=== PATIENT | female | born 1935 | race Caucasian/White ===

== ENCOUNTER 2018-03-12 10:34 | Observation (INO) | payer MEDICARE, OTHER ==
[2018-03-12] MEDS ORDERED: ISOVUE-370 76%-LOCM 1 ML ONE (10:42)
[2018-03-12 11:41] LABS: #Basophils 0.1 thou/uL (0.0-0.2); #Eosinphils 0.1 thou/uL (0.0-0.7); #Lymphocytes 0.9 thou/uL (1.20-3.40); #Monocytes 0.9 thou/uL (0.11-0.59); #Neutrophils 4.7 thou/uL (1.40-6.50); %Eosinophils 1.5 % (0.0-10.0); %Lymphocytes 13.5 % (21.0-51.0); %Monocytes 12.8 % (0.0-10.0); %Neutrophils 71.2 % (42.0-75.0); Hemoglobin 12.6 g/dL (12.0-16.0); Mean Corpuscular HGB CONC 32.4 g/dL (32.0-36.0); Mean Corpuscular Hemoglobin 31.8 pg (27.0-31.0); Mean Corpuscular Volume 98.2 fL (78.0-98.0); Mean Platelet Volume 7.1 fL (7.4-10.4); Platelet Count 280 thou/uL (130-400); RBC Distribution Width 12.3 % (11.5-14.5); Red Blood Cell (RBC) Count 3.95 mill/uL (4.20-5.40); White Blood Cell (WBC) Count 6.6 thou/uL (4.8-10.8)
[2018-03-12] MEDS ORDERED: Diazepam 5 MG TAB ONE (11:45)
[2018-03-12 11:57] LABS: ALT (SGPT) 13 U/L (8-55); AST (SGOT) 17 U/L (5-34); Albumin 3.9 g/dL (3.4-4.8); Alkaline Phosphatase 84 U/L (40-150); Anion Gap 16 mmol/L (10-20); BUN (Urea Nitrogen) 18 mg/dL (9.8-20.1); Bilirubin, Total 0.7 mg/dL (0.2-1.2); CK (CPK) 52 U/L (29-168); Calc. Creatinine Clearance 0 mL/min (70-130); Calcium 9.2 mg/dL (7.8-10.44); Carbon Dioxide 22 mmol/L (23-31); Chloride 103 mmol/L (98-107); Estimated GFR-MDRD 78; Globulin 2.9 g/dL (2.4-3.5); Glucose 98 mg/dL (83-110); Potassium 4.5 mmol/L (3.5-5.1); Protein, Total 6.8 g/dL (6.0-8.3); Sodium 136 mmol/L (136-145)
--- NOTE | 2018-03-12 11:57 | RAD ---
SINGLE VIEW CHEST: Date: 03/12/18 COMPARISON: 01/24/15. HISTORY: Altered mental status. FINDINGS: Single view of the chest shows normal sized cardiomediastinal silhouette with atherosclerotic calcifi cations in the aorta. There is no evidence of consolidation, mass, or pleural effusion. IMPRESSION: No evidence of acute cardiopulmonary disease. POS: [facility]
[2018-03-12 12:01] LABS: CKMB 1.3 ng/mL (0-6.6); Troponin I Less than 0.010 ng/mL (< 0.028)
--- NOTE | 2018-03-12 13:44 | CT ---
NONCONTRAST CT HEAD: Date: 03/12/18 HISTORY: Dizziness, shortness of breath, Nausea. Syncopal episodes. COMPARISON: 02/08/15. FINDINGS: Again noted are postsurgical changes related to left frontotemporal craniotomy defect. There is evide nce of aneurysm clipping in the expected location of the anterior communicating artery. Vascular sten t is again seen within the cavernous internal carotid artery with embolization coil seen in a supracl inoid location likely related to prior coil embolization of aneurysm. There is stable encephalomalaci a seen within the left frontal and temporal lobes likely related to remote areas of infarction and/or insult. This includes low density areas within the left basal ganglia, which may be related to remot e areas of lacunar infarction. Low density areas are also seen in the right basal ganglia, stable fro m prior study, probably related to remote lacunar infarctions. There are mild chronic small vessel ischemic changes and cerebral volume loss which has not progresse d from the prior exam. There is no evidence of an acute cortical infarction, hemorrhage, mass effect, or midline shift. Remote infarction in the right cerebellar hemisphere is again seen. No other inter debra change. IMPRESSION: 1. No acute intracranial abnormality is demonstrated. 2. Postsurgical changes as described above with stable areas of encephalomalacia in the left frontot emporal lobes. 3. 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 POS: [facility]
[2018-03-12] MEDS ORDERED: Senokot S 8.6-50 MG TAB PO PRN ×2 (15:58)
[2018-03-12] MEDS ORDERED: Ondansetron PF 4 MG/2 ML Vial IVP PRN (15:58)
[2018-03-12] MEDS ORDERED: Nitroglycerin 0.4 MG TAB (25 Tab Bottle) SL PRN (15:58)
[2018-03-12] MEDS ORDERED: cloNIDine 0.1 MG TAB PO PRN (15:58)
[2018-03-12] MEDS ORDERED: Diabetic Tussin 200 MG/10 ML UDCUP PO PRN (15:58)
[2018-03-12] MEDS ORDERED: Benzonatate 100 MG CAP PO PRN (15:58)
[2018-03-12] MEDS ORDERED: Bisacodyl 5 MG TAB PO PRN ×2 (15:58)
[2018-03-12] MEDS ORDERED: Acetaminophen 500 MG TAB PO PRN (15:58)
[2018-03-12] MEDS ORDERED: hydrALAZINE 20 MG/ML VIAL SLOW IVP PRN (15:58)
[2018-03-12 16:01] LABS: Bilirubin Negative (Negative); Blood, Urine Negative (Negative); Clarity CLEAR (Clear); Glucose, Urine (Dipstick) Negative (Negative); Leukocyte Moderate (Negative); Nitrite Negative (Negative); Protein, Urine (Dipstick) Negative (Neg-Trace); Specific Gravity, Urine 1.019 (1.002-1.036); Urobilinogen 0.2 mg/dL (0.2-1.0)
[2018-03-12 16:03] LABS: Bacteria/HPF None Seen HPF (None Seen); Hyaline Casts/LPF 0-3 HYALINE CAST LPF (0-3 Hyaline); Pathc Cast-AUWi Flag 0.29 (0-2.49); RBC/HPF 0-3 HPF (0-3); Squamous Epithelial 0-3 HPF (0-3)
[2018-03-12] MEDS ORDERED: Amlodipine 5 MG TAB PO SCH (17:15)
[2018-03-12 17:59] VITALS: BMI 23.1
[2018-03-12] MEDS: Acetaminophen 325 MG TAB PO PRN (18:54)
[2018-03-12] MEDS: Sodium Chloride 0.9% 1,000 ML IV SCH (18:55)
[2018-03-12] MEDS: cefTRIAXone\\ROCEPHIN 1 GM in Sodium Chloride 0.9% 100 ML IVPB SCH (19:39)
--- NOTE | 2018-03-12 20:22 | CT ---
CT BRAIN WITHOUT CONTRAST CT ANGIOGRAM HEAD WITH CONTRAST CT ANGIOGRAM NECK WITH CONTRAST 03/12/18 COMPARISON: CT brain same day. TECHNIQUE: CT of the brain was performed without contrast. CT angiogram of the head was performed after the intr avenous administration of contrast. FINDINGS: Left craniectomy changes. Encephalomalacia in the left frontal lobe. No acute hemorrhage. No midline shift or mass effect. Old left basal ganglia and thalamic infarct. IMPRESSION: Unchanged exam. CT ANGIOGRAM OF THE HEAD AND NECK CT angiogram of the head and neck performed after the intravenous administration of contrast. 3D rend ering provided. FINDINGS: The lung apices are clear. Small left thyroid hypodensities. Vertebral arteries are codominant. There is ectasia of the vertebral arteries indicating chronic hype rtension. The left vertebral artery ends in the PICA, a normal variant. Using NASCET criteria, there is no hemodynamically significant stenosis of the internal carotid arteries. Approximately 50% stenos is of left internal carotid artery and 20% stenosis right proximal internal carotid artery. Vascular graft right MCA. Prior right MCA aneurysm clipping. Appears to be a small anterior communica ting artery aneurysm only seen on the axial images due to the spray artifact on the reformatted image s. This measures approximately 2 x 2 mm. 2 mm aneurysm right M1 segment near the trifurcation. aerodynamics teacher are patent. IMPRESSION: 1. 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 2. 2 mm aneurysm right M1 segment near the trifurcation. Code T POS: [facility]
--- NOTE | 2018-03-12 20:48 | HP ---
DATE OF ADMISSION: 03/12/2018 PRIMARY CARE PHYSICIAN: Bhavin Camarena M.D. CHIEF COMPLAINT: Dizziness. HISTORY OF PRESENT ILLNESS: Ms. Black is a pleasant 82-year-old female with past medical history of multiple cerebral aneurysms status post coiling with stenting 2 or 3 decades ago as well as histor y of hypertension and osteoarthritis who presented with above-mentioned complaint. History is mainly obtained by the patient herself and electronic medical records have been reviewed. Ms. Black reports that she has been having on and off dizziness for the last 6 weeks. She eats po adis and lives in an assisted living facility. She was told that she is dehydrated, so she has incre ased her fluid intake, but she continues to feel dizzy and it is getting worse for the last 2 days. Her dizziness is mainly positional. She is very dizzy when she sits up from a lying position or marixa ds up from a sitting position. She has to wait until the dizziness pauses before moving; otherwise, she feels that she will fall. She has not actually fallen. She denies any recent illnesses. She de nies any headache or vision changes. She denies any speech slurring or any vision changes. She marychuy es any numbness or tingling in her arms or muscle weakness, though she has neuropathy with some chron ic paresthesias. She denies any chest pain, but feels that sometimes she has feeling of heart racing . She denies any shortness of breath with these episodes. There is no prodrome associated. No head ache, no fever. She has not been having any nausea, vomiting, diarrhea or abdominal pain. She denie s any dysuria, frequency, urgency. No recent travel. Upon presentation to the ER, she was hypertensive with a blood pressure of 208/81, otherwise unremark able. Chest x-ray and CT scan of the brain were unremarkable. No acute infarction. She has remote infarction of the right cerebellar hemisphere with remote lacunar infarction in each basal ganglia. Some encephalomalacia was also noticed. She was given Valium without benefit and is now being admitt ed for further workup of unrelenting dizziness. PAST MEDICAL HISTORY: 1. Hypertension. 2. History of multiple cerebral aneurysms. 3. Dementia. 4. Diaphragmatic hernia. 5. Gastroesophageal reflux disease. 6. Osteoarthritis. PAST SURGICAL HISTORY: 1. Craniotomy for aneurysm repair. 2. Stent placement multiple years ago for treatment of cerebral aneurysm. 3. Cataract surgery. 4. Oral surgery. 5. 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 CURRENT MEDICATIONS: Unknown. Further need to be clarified, but the patient reports that she takes Plavix since 1982. Other medications listed in the ER as follows, Aciphex 20 mg daily, Bisacodyl p.r .n., Lutein 40 mg daily, vitamin D daily, Norvasc 5 mg daily, potassium gluconate 595 mg daily, Mucin ex daily p.r.n., magnesium daily p.r.n., melatonin 5 mg once a daily. ALLERGIES: ADHESIVE TAPE and some unknown blood pressure medication. SOCIAL HISTORY: She has quit smoking in 1982, multiple years of smoking, prior to that one pack a da y since 1954. No history of alcohol or drug abuse. Currently living in an assisted living facility. FAMILY HISTORY: Significant for coronary artery disease in multiple family members on both mother an d father's side. Diabetes mellitus in her mother. CODE STATUS: DO NOT RESUSCITATE or INTUBATE. Discussed with the patient in detail. She verbalizes what it entails. REVIEW OF SYSTEMS: A 12-point review of systems is done. It is negative except for those mentioned in the history and physical. LABORATORY DATA: CBC is unremarkable. Serum chemistries unremarkable. Cardiac enzymes within perico l range. TSH normal. Liver enzymes normal. Blood sugar 98. Urinalysis shows some ketones, leukocy te esterase and wbc's with a specific gravity of 1.019. Chest x-ray by my review has no evidence to suggest any pleural effusion, edema or infiltrate. CT scan of the brain per my review has no active hemorrhage. A 12-lead EKG by my review shows normal sinus rhythm with some premature atrial complexe s. Normal ST segment and normal T waves. Q-waves in lead V1 and V2. PHYSICAL EXAMINATION: VITAL SIGNS: Upon presentation, blood pressure 208/81, pulse of 70, respirations 16, saturating 98% on room air, temperature 98.2. GENERAL: No acute distress, awake, alert, oriented x3. HEENT: Mucous membranes are slightly dry. No oropharyngeal exudate or erythema. Head is normocepha lic, atraumatic. Pupils are equal, reactive to light and accommodation. Extraocular movements intac t. NECK: Supple without any lymphadenopathy, JVD or bruit. CHEST: Clear to auscultation without any wheezing, rales or rhonchi. CARDIOVASCULAR: Rate and rhythm is regular without any murmur, rubs or gallops. ABDOMEN: Soft, nontender, nondistended. She has one spot of tenderness little right to the epigastr ic region. No rebound, guarding or rigidity. EXTREMITIES: Free of any cyanosis, clubbing, or edema. NEUROLOGIC: Nonfocal. No nystagmus noticed. SKIN: Shows diffuse bruising, mainly in the upper extremities which the patient attributes to her "b lood thinner" Plavix. PSYCHIATRIC: Normal affect. IMPRESSION AND PLAN: 1. Dizziness. The patient has multiple risk factors for posterior basilar stroke. We will admit he r to the hospital to stroke floor with frequent neuro checks and TIA/CVA workup. I will start her on low dose enteric-coated aspirin and get an MRI of the brain, carotid Doppler ultrasound, and transth oracic echocardiogram. We will also start her on gentle IV fluid hydration and obtain orthostatics a s the patient's symptoms are rather positional. At this time, the other possibilities include benign positional vertigo, orthostatic hypotension or vestibular neuronitis. She will be on telemetry to r ule out any arrhythmias, though it is less likely. 2. Hypertensive urgency. The patient only takes Norvasc at home. We will restart it and start her on p.r.n. antihypertensives with not too tight of blood pressure control in case we are facing cerebr ovascular accident. 3. Early urinary tract infection. The patient most likely also has developed a urinary tract infect ion. We will send the urine for culture and start her on empiric Rocephin for now. 4. History of cerebral aneurysms. I am not sure why the patient is on Plavix as the brain hemorrhag e would be a relative contraindication. She reports that she is on it since 1982, which does not romero nd right. I have encouraged her to discuss it further with her primary care physician, Dr. Camarena at er next outpatient visit. 5. Diaphragmatic hernia. Restart proton pump inhibitor. 6. History of osteoarthritis. 7. CODE STATUS: DO NOT RESUSCITATE or INTUBATE discussed with the patient. 8. Deep venous thrombosis and gastrointestinal prophylaxis and continue supportive care. DISPOSITION: Ms. Black is currently being admitted to the hospital for intractable vertigo and di zziness to rule out posterior cerebral circulation stroke. Estimated length of stay is less than 2 m idnights. Further management will depend upon her clinical course.
[2018-03-12] MEDS: Heparin 5,000 UNITS/ML VIAL SC SCH (22:22)
[2018-03-12] MEDS: Famotidine 20 MG TAB PO SCH (22:23)
[2018-03-13 04:51] LABS: #Basophils 0.1 thou/uL (0.0-0.2); #Eosinphils 0.3 thou/uL (0.0-0.7); #Lymphocytes 1.2 thou/uL (1.20-3.40); #Monocytes 0.7 thou/uL (0.11-0.59); #Neutrophils 3.4 thou/uL (1.40-6.50); %Basophils 1.1 % (0.0-1.0); %Eosinophils 4.5 % (0.0-10.0); %Lymphocytes 20.9 % (21.0-51.0); %Monocytes 12.6 % (0.0-10.0); %Neutrophils 60.9 % (42.0-75.0); Hemoglobin 11.8 g/dL (12.0-16.0); Mean Corpuscular HGB CONC 32.1 g/dL (32.0-36.0); Mean Corpuscular Hemoglobin 31.4 pg (27.0-31.0); Mean Corpuscular Volume 97.7 fL (78.0-98.0); Mean Platelet Volume 7.4 fL (7.4-10.4); Platelet Count 279 thou/uL (130-400); RBC Distribution Width 12.5 % (11.5-14.5); Red Blood Cell (RBC) Count 3.76 mill/uL (4.20-5.40); White Blood Cell (WBC) Count 5.6 thou/uL (4.8-10.8)
[2018-03-13 05:13] LABS: Anion Gap 15 mmol/L (10-20); BUN (Urea Nitrogen) 13 mg/dL (9.8-20.1); Calc. Creatinine Clearance 61 mL/min (70-130); Calcium 8.8 mg/dL (7.8-10.44); Carbon Dioxide 20 mmol/L (23-31); Chloride 106 mmol/L (98-107); Estimated GFR-MDRD 85; Glucose 82 mg/dL (83-110); Potassium 3.8 mmol/L (3.5-5.1); Sodium 137 mmol/L (136-145)
[2018-03-13 05:16] LABS: Cardiac Risk 1.9 (Less than 4.5)
[2018-03-13] MEDS: Sodium Chloride 0.9% 1,000 ML IV SCH ×2 (06:26→11:33)
[2018-03-13] MEDS ORDERED: Prevnar 13-Val Conj/PF 0.5 ML SYRINGE IM ONE (09:00)
[2018-03-13] MEDS ORDERED: Amlodipine 5 MG TAB PO SCH (09:00)
[2018-03-13] MEDS: Famotidine 20 MG TAB PO SCH ×2 (09:53→20:48)
[2018-03-13] MEDS: Aspirin 81 mg Enteric Coated Tablet PO SCH (09:53)
[2018-03-13] MEDS: Heparin 5,000 UNITS/ML VIAL SC SCH ×2 (09:53→20:48)
--- NOTE | 2018-03-13 12:48 | PDOC.PN ---
- Subjective Encounter Start Date: 03/13/18 Encounter Start Time: 12:46 Subjective: no more dizziness. No N/V -: feels a little better but says her head feels funny -: feels that she needs plavix for her head as she is on it since 1982 - Objective Resuscitation Status: Resuscitation Status DNR:Do Not Resuscitate MAR Reviewed: Yes Vital Signs & Weight: Vital Signs (12 hours) Temp Pulse Resp BP BP Pulse Ox 03/13/18 11:01 98.5 F 76 18 136/82 93 L 03/13/18 09:53 78 146/72 H 03/13/18 07:51 98.4 F 81 18 146/72 H 97 03/13/18 03:51 98.1 F 70 16 146/68 H 94 L Weight Weight 135 lb I&O: 03/12/18 03/13/18 03/14/18 06:59 06:59 06:59 Intake Total 1225 Balance 1225 Result Diagrams: 03/13/18 03:35 03/13/18 03:35 Additional Labs: Laboratory Tests 03/12/18 03/12/18 03/13/18 11:23 11:23 03:35 CK-MB (CK-2) 1.3 Troponin I Less than 0.010 Triglycerides 63 Cholesterol 175 LDL Cholesterol, Calc 72 HDL Cholesterol 90 TSH 3rd Generation [id number] Radiology Reviewed by me: Yes (CTA-small cerebral aneurysms) Phys Exam - Physical Examination Constitutional: NAD HEENT: PERRLA, moist MMs, sclera anicteric, oral pharynx no lesions Neck: no nodes, no JVD, supple, full ROM Respiratory: no wheezing, no rales, no rhonchi, clear to auscultation bilateral Cardiovascular: RRR, no significant murmur, no rub Gastrointestinal: soft, non-tender, no distention, positive bowel sounds Musculoskeletal: no edema, pulses present Neurological: non-focal, normal sensation, moves all 4 limbs Psychiatric: normal affect, A&O x 3 Deviation from normal: extensive bruising upper extrmities Dx/Plan (1) Dizziness and giddiness Code(s): R42 - DIZZINESS AND GIDDINESS Status: Acute (2) UTI (urinary tract infection) Status: Acute (3) Cerebral aneurysm without rupture Code(s): I67.1 - CEREBRAL ANEURYSM, NONRUPTURED Status: Chronic (4) Dementia Code(s): F03.90 - UNSPECIFIED DEMENTIA WITHOUT BEHAVIORAL DISTURBANCE Status: Chronic (5) GERD (gastroesophageal reflux disease) Code(s): K21.9 - GASTRO-ESOPHAGEAL REFLUX DISEASE WITHOUT ESOPHAGITIS Status: Chronic (6) Hypertension Code(s): I10 - ESSENTIAL (PRIMARY) HYPERTENSION Status: Chronic - Plan PT/OT, out of bed/ambulate, DVT proph w/SCDs Bp better controlled. cont Amlodipine,prn anti hypertensives -: Hold plavix given cerebral aneurysms.Will consult NS as not sure if symptom -: are due to aneurysms -: Pt adamant that she needs to take plavix despite telling the risk og Bleed -: Cont rocephin,follow urine cx * .cont NS for now * orthostatics negative * ? Vertigo. * HD stable Review of Systems - Review of Systems Constitutional: weakness. negative: fever, chills, sweats, malaise, other ENT: negative: Ear Pain, Ear Discharge, Nose Pain, Nose Discharge, Nose Congestion, Mouth Pain, Mouth Swelling, Throat Pain, Throat Swelling, Other Respiratory: negative: Cough, Dry, Shortness of Breath, Hemoptysis, SOB with Excertion, Pleuritic Pain, Sputum, Wheezing Cardiovascular: light headedness. negative: chest pain, palpitations, orthopnea , paroxysmal nocturnal dyspnea, edema, other Gastrointestinal: negative: Nausea, Vomiting, Abdominal Pain, Diarrhea, Constipation, Melena, Hematochezia, Other Musculoskeletal: negative: Neck Pain, Shoulder Pain, Arm Pain, Back Pain, Hand Pain, Leg Pain, Foot Pain, Other Skin: negative: Rash, Lesions, Ari, Bruising, Other Neurological: negative: Weakness, Numbness, Incoordination, Change in Speech, Confusion, Seizures, Other - Medications/Allergies Allergies/Adverse Reactions: Allergies Allergy/AdvReac Type Severity Reaction Status Date / Time adhesive tape [tape] Allergy Rash Verified 03/13/18 09:37 Medications: Current Medications Acetaminophen (Tylenol) 650 mg PO Q4H PRN PRN Reason: Headache/Fever/Mild Pain (1-3) Last Admin: 03/12/18 18:54 Dose: 650 mg Acetaminophen (Tylenol) 1,000 mg PO Q6H PRN PRN Reason: Mild Pain (1-3) Amlodipine Besylate (Norvasc) 5 mg PO DAILY [facility] Last Admin: 03/13/18 09:53 Dose: 5 mg Aspirin (Ecotrin) 81 mg PO DAILY [facility] Last Admin: 03/13/18 09:53 Dose: 81 mg Benzonatate (Tessalon) 100 mg PO Q6H PRN PRN Reason: Cough Bisacodyl (Dulcolax) 10 mg PO DAILYPRN PRN PRN Reason: Constipation Clonidine (Catapres) 0.1 mg PO Q4H PRN PRN Reason: SBP > 170____ Famotidine (Pepcid) 20 mg PO BID [facility] Last Admin: 03/13/18 09:53 Dose: 20 mg Guaifenesin (Robitussin Sf) 200 mg PO Q4H PRN PRN Reason: Cough Heparin Sodium (Porcine) (Heparin) 5,000 units SC Q12HR [facility] Last Admin: 03/13/18 09:53 Dose: 5,000 units Hydralazine HCl (Apresoline) 10 mg SLOW IVP Q4H PRN PRN Reason: SBP > 180 and HR < 70 Sodium Chloride (Normal Saline 0.9%) 1,000 mls @ 75 mls/hr IV .[id number] [facility] Last Admin: 03/13/18 11:33 Dose: 1,000 mls Ceftriaxone Sodium 1 gm/ (Sodium Chloride) 100 mls @ 200 mls/hr IVPB Q24HR [facility] Last Admin: 03/12/18 19:39 Dose: 100 mls Nitroglycerin (Nitrostat) 0.4 mg SL Q5MIN PRN PRN Reason: Chest Pain Ondansetron HCl (Zofran) 4 mg IVP Q6H PRN PRN Reason: Nausea/Vomiting Pantoprazole Sodium (Protonix) 40 mg PO DAILY [facility] Last Admin: 03/13/18 09:53 Dose: 40 mg Senna/Docusate Sodium (Senokot S) 2 tab PO BID PRN PRN Reason: Constipation Sodium Chloride (Flush - Normal Saline) 10 ml IVF PRN PRN PRN Reason: Saline Flush
[2018-03-13] MEDS ORDERED: Bisacodyl 5 MG TAB PO PRN (12:49)
[2018-03-13] MEDS ORDERED: Acetaminophen 500 MG TAB PO PRN (12:49)
[2018-03-13] MEDS: Acetaminophen 325 MG TAB PO PRN (16:39)
[2018-03-13] MEDS: cefTRIAXone\\ROCEPHIN 1 GM in Sodium Chloride 0.9% 100 ML IVPB SCH (18:37)
[2018-03-13] MEDS ORDERED: Melatonin 3 MG TAB PO SCH (21:00)
[2018-03-14 08:05] VITALS: BP 160/66; TEMP 98.3
[2018-03-14] MEDS: Aspirin 81 mg Enteric Coated Tablet PO SCH (08:07)
[2018-03-14] MEDS: Famotidine 20 MG TAB PO SCH (08:07)
[2018-03-14] MEDS: Heparin 5,000 UNITS/ML VIAL SC SCH (08:08)
[2018-03-14] MEDS ORDERED: Polyethylene Glycol 3350 17 GM Packet PO SCH (09:00)
[2018-03-14] MEDS ORDERED: Amlodipine 5 MG TAB PO SCH (09:00)
--- NOTE | 2018-03-14 15:59 | DIS ---
DATE OF ADMISSION: 03/12/2018 DATE OF DISCHARGE: 03/14/2018 CONDITION AT THE TIME OF DISCHARGE: Stable and improved. PRIMARY CARE PHYSICIAN: Dr. Bhavin Camarena. PRIMARY CONSULTING DATABASE ADMINISTRATOR: Dr. Coker. DISCHARGE DIAGNOSES: 1. Vertigo. 2. Urinary tract infection. 3. Cerebral aneurysm with history of coiling. 4. Hypertension. 5. Dementia. 6. Diaphragmatic hernia. 7. Gastroesophageal reflux disease. 8. Osteoarthritis. DISCHARGE MEDICATIONS: Resume home medications as per the history and physical. The patient is inst ructed to hold the Plavix for now, but the patient and her family are very reluctant and somewhat arg umentative about continuing that. New medication, levofloxacin 500 mg p.o. daily for 5 more days. PROCEDURES DONE IN THE HOSPITAL: 1. CT angio of the brain, which shows 2 small aneurysms. The first one is a 2 x 3 mm aneurysm of th e anterior communicating artery and another one is a 2 mm aneurysm of the right M1 segment of the tri furcation. 2. Transthoracic echocardiogram which shows EF of 55%-60% and diastolic dysfunction with left atrial enlargement, otherwise unremarkable. 3. CT scan of the brain upon presentation, which is negative for acute intracranial abnormality. Re mote infarction of the right cerebellar hemisphere with remote lacunar infarction in each basal gangl ia are seen. INHOUSE CONSULTATION: Neurosurgery who will follow the patient as an outpatient, Dr. Trejo. HISTORY OF PRESENT ILLNESS: Ms. Black is a pleasant 82-year-old female with past medical history of multiple cerebral aneurysm requiring clipping as well as hypertension, who presented to the emerge ncy room with complaints of intractable dizziness. She had no improvement in her symptoms in the nitesh rgency room and was admitted for intractable vertigo workup. She was hemodynamically stable upon pre sentation. Please see admission history and physical for further detail. HOSPITAL COURSE: She was admitted to stroke floor to rule out transient ischemic attack/cerebrovascu lar accident. She could not undergo MRI of the brain, because of the cerebral coils. She had a CT a ngio done, which showed 2 small aneurysms as above. Echocardiogram was rather unimpressive. The pat ient's Plavix was held while she was here, but she insisted on keeping it on since she is taking it s pastor "1982". She reports that she was given it for the cerebral aneurysm, but I tried to tell her th at her risk of bleeding from Plavix is significantly high given the aneurysms. Her orthostatics were negative. Her symptoms resolved gradually spontaneously. She was found to hav e a mild UTI, which was treated with Rocephin in the emergency room and culture was sent, which is pe nding at this time. Echo was done with the above-mentioned results. As of this morning, she is back to her baseline and is symptom free. PHYSICAL EXAMINATION: VITAL SIGNS: This morning on my examination, temperature 98.3, pulse of 79, respirations 16, saturat ing 95% on room air, blood pressure 160/66. GENERAL: No acute distress, walking around the room. Family is at bedside. CHEST: Clear to auscultation bilaterally. HEART: Rate and rhythm is regular. LABORATORY EXAMINATION: Lipid panel normal. TSH 1.90. Cardiac enzymes normal. Serum chemistries a nd CBC normal. Urine culture pending at this time. They are encouraged to follow up with Dr. Camarena and discuss the Plavix with him as well. I have discussed her case with Mr. Ayan Heath PA-C who is working with Dr. Trejo and they have reviewed the images. They will follow the patient in the outpatient setting. The patient also repor ts that she has an upcoming appointment with Cardiology, Dr. Coker in 2-3 days. She was unable to t ell me why she sees the ticket scheduler. Once again, she is encouraged to discuss Plavix with Cardiolog y as well. As at this time, I cannot find a clear indication of lifelong Plavix for this patient. S he was found to have extensive bruising in her upper extremities and is a very high risk of cerebral bleed if she continues to take Plavix without a clear indication.
[2018-03-14] MEDS ORDERED: cefTRIAXone\\ROCEPHIN 1 GM in Sodium Chloride 0.9% 100 ML IVPB SCH (18:00)
== END 2018-03-14 09:12 | disposition home or self-care (01) ==
LOC: ERS 10:34 → 2SE 15:14
PROVIDERS: ADMIT Internal Medicine; ATTEND Internal Medicine
DX: R42 Dizziness and giddiness (principal); N39.0 Urinary tract infection, site not specified; I10 Essential (primary) hypertension; K21.9 Gastro-esophageal reflux disease without esophagitis; M19.90 Unspecified osteoarthritis, unspecified site; F03.90 Unspecified dementia, unspecified severity, without behavioral disturbance, psychotic disturbance, mood disturbance, and anxiety; K44.9 Diaphragmatic hernia without obstruction or gangrene; Z79.52 Long term (current) use of systemic steroids; Z79.899 Other long term (current) drug therapy; Z87.891 Personal history of nicotine dependence
CPT/HCPCS: 70450; 70496; 70498; 71045; 80048; 80061; 82550; 82553; 84484; 85025; 87086; 93005; 93306; 96365; 96376; 97139; 99285; G0378 ×2; G8978; G8979; G8980; 36415; 80053; 81003; 81015; 84443; J0696; J1644; J7050

== ENCOUNTER 2019-01-17 03:29 | Emergency (ER) | payer MEDICARE, OTHER ==
[2019-01-17] MEDS ORDERED: Adacel (T-DAP) 0.5 ML SYRINGE ONE (04:14)
== END 2019-01-17 05:01 | disposition home or self-care (01) ==
LOC: ERS 03:29
DX: S81.812A Laceration without foreign body, left lower leg, initial encounter (principal); I10 Essential (primary) hypertension; E78.00 Pure hypercholesterolemia, unspecified; Z87.891 Personal history of nicotine dependence; Z79.899 Other long term (current) drug therapy; W06.XXXA Fall from bed, initial encounter
CPT/HCPCS: 90471; 90715

== ENCOUNTER 2019-01-23 20:05 | Inpatient (IN) | payer MEDICARE ==
--- NOTE | 2019-01-23 20:41 | RAD ---
EXAM: Single view of the chest HISTORY: Shortness of breath COMPARISON: 03/12/2018 FINDINGS: Single view of the chest shows a normal sized cardiomediastinal silhouette. Atheroscleroti c calcifications are seen in the aorta. There is no evidence of consolidation, mass, or pleural effusion. Degenerative changes are seen in the spine and left shoulder. IMPRESSION: No evidence of acute cardiopulmonary disease
[2019-01-23] MEDS ORDERED: cefTRIAXone\\ROCEPHIN 2 GM VIAL ONE (21:04)
[2019-01-23 21:10] LABS: #Eosinphils 0.2 thou/uL (0.0-0.7); #Lymphocytes 1.3 thou/uL (1.20-3.40); #Monocytes 1.2 thou/uL (0.11-0.59); #Neutrophils 8.2 thou/uL (1.40-6.50); %Basophils 0.2 % (0.0-1.0); %Eosinophils 2.1 % (0.0-10.0); %Lymphocytes 12.3 % (21.0-51.0); %Monocytes 10.6 % (0.0-10.0); %Neutrophils 74.8 % (42.0-75.0); Hemoglobin 11.9 g/dL (12.0-16.0); Mean Corpuscular HGB CONC 34.5 g/dL (32.0-36.0); Mean Corpuscular Hemoglobin 34.2 pg (27.0-31.0); Platelet Count 330 thou/uL (130-400); RBC Distribution Width 12.3 % (11.5-14.5); Red Blood Cell (RBC) Count 3.49 mill/uL (4.20-5.40); White Blood Cell (WBC) Count 10.9 thou/uL (4.8-10.8)
[2019-01-23 21:31] LABS: ALT (SGPT) 12 U/L (8-55); AST (SGOT) 15 U/L (5-34); Albumin 4.2 g/dL (3.4-4.8); Alkaline Phosphatase 82 U/L (40-150); Anion Gap 18 mmol/L (10-20); BUN (Urea Nitrogen) 16 mg/dL (9.8-20.1); Bilirubin, Total 0.3 mg/dL (0.2-1.2); Calc. Creatinine Clearance 0 mL/min (70-130); Calcium 9.8 mg/dL (7.8-10.44); Carbon Dioxide 20 mmol/L (23-31); Chloride 100 mmol/L (98-107); Estimated GFR-MDRD 55; Globulin 3.7 g/dL (2.4-3.5); Glucose 89 mg/dL (83-110); Potassium 3.6 mmol/L (3.5-5.1); Protein, Total 7.9 g/dL (6.0-8.3); Sodium 134 mmol/L (136-145)
[2019-01-23] MEDS ORDERED: Acetaminophen 325 MG TAB PO PRN (23:09)
[2019-01-23] MEDS ORDERED: Acetaminophen 650 MG Suppository PR PRN (23:09)
[2019-01-24 00:50] LABS: Troponin I Less than 0.010 ng/mL (< 0.028)
[2019-01-24 01:02] LABS: Lactic Acid 0.8 mmol/L (0.5-2.2)
[2019-01-24] MEDS ORDERED: PSEUDOEPHEDRNE HCL PO PRN (01:57)
[2019-01-24] MEDS ORDERED: Loperamide HCl 2 MG CAP PO PRN (01:57)
[2019-01-24] MEDS ORDERED: GUAIFENESIN PO PRN (01:57)
[2019-01-24] MEDS: traMADol HCl 50 MG TAB PO PRN ×3 (02:14→17:26)
--- NOTE | 2019-01-24 02:36 | HP ---
PRIMARY CARE DOCTOR: Bhavin Camarena MD. CODE STATUS: Full code. TIME OF EVALUATION: 11:00 p.m. CHIEF COMPLAINT: Left leg redness. HISTORY OF PRESENT ILLNESS: 83 years old female patient with past medical history of chronic constipation, cerebral aneurysm, hypertension, high cholesterol, came to the hospital after having left lower extremity leg swelling, redness, the patient has a chronic wound that is nonhealing and seems to be overtly infected, associated with shortness of breath. No significant chest pain was reported. The leg is swollen, red with significant drainage from the wound. The patient reported was having Wound Care at home, but it did not get better. The shortness of breath started around 0530 hours with no clear triggers, no exacerbating factors, was severe. REVIEW OF SYSTEMS: All other systems were reviewed and negative except for the findings mentioned above. PAST MEDICAL HISTORY: As mentioned in HPI. PAST SURGICAL HISTORY: Cerebral aneurysmal repair x2. FAMILY HISTORY: Reviewed and non contributory for current presentations PSYCHIATRIC HISTORY: No previous psych history. SOCIAL HISTORY: The patient drinks socially once a month. The patient is a former tobacco user. Smokes cigarettes. No drugs. Lives in a long-term care facility at [facility]. FAMILY HISTORY: Noncontributory to current presentation. KNOWN ALLERGIES: Adhesive tape, unknown blood pressure medications. REPORTED MEDICATIONS: Lutein, vitamin D3, Norvasc, potassium gluconate, Mucinex , melatonin, and Tylenol ES. PHYSICAL EXAMINATION: VITAL SIGNS: On presentation, blood pressure 165/77 with heart rate 92, respiratory rate was 18, temperature 97.9. GENERAL APPEARANCE: The patient is alert, oriented, no acute distress. HEENT: Eyes, normal conjunctivae. Moist oral mucosa. Anicteric. No JVD. RESPIRATORY: Bilateral air entry. No rales. No wheezes. Symmetric expansion. CARDIOVASCULAR: Normal rate. Regular rhythm. No murmurs. No gallop. No edema. ABDOMEN: Soft. Normal bowel sounds. MUSCULOSKELETAL: Baseline range of motion and strength. On the left lower extremity, there is a skin tear that is old after the patient had a fall about a week ago. It has continued to be red, swollen, tender, with significant drainage from the nonhealing wound. SKIN: Warm and intact. No pallor. No rash. No redness. The left lower extremity as described in musculoskeletal. NEURO: No evidence of any new focal weakness. Cranial nerves seems to be intact. PSYCH: The patient is in good mood. No anxiety. Optimal judgment. DIAGNOSTIC STUDIES: EKG was reviewed. The patient has normal sinus rhythm with a rate of 85 with MS 152, QRS 80, QT corrected 466. Vascular ultrasound was done. The patient has no significant DVT in the left lower extremity. Also on the area of the wound, it could not be done due to the wound. The x-ray was done, it was negative. LABORATORY DATA: Reviewed. The patient has a white count of 10.9, hemoglobin 11.9 MCV 99, platelet count 330, neutrophils 74, lymphocytes 12.3, monocytes 10.6. Coagulation, D-dimer 0.83. Chemistry; sodium 134, potassium 3.6, chloride 100, carbon dioxide 20, anion gap 18, BUN 16, creatinine 0.96 and GFR 55. Lactic acid 2.2, the second one 0.8. LFTs were negative and troponin was negative x2. ASSESSMENT AND PLAN: The patient will be placed in the hospital with following medical problems: 1. Left lower extremity cellulitis. The patient will be on broad-spectrum antibiotics. We will follow cultures. We will treat accordingly. 2. Chest pain, unclear etiology. Unlikely to be coronary artery disease. This patient has a negative troponin. No significant EKG changes. The patient has a positive D-dimer. The patient is almost nonambulatory after the fall and the wound. High risk for pulmonary embolism with positive D-dimer. We will do a CT angio, give some hydration for kidney protection to rule out pulmonary embolism. 3. Chronic macrocytic anemia. We will monitor. This is chronic, can be followed as outpatient. 4. Uncontrolled hypertension, systolic blood pressure 165. We will monitor. We will treat accordingly. Reconcile home medications. 5. Deep venous thrombosis prophylaxis. 6. Hyperlipidemia. Low-cholesterol diet is advised. Reconcile home medications. Job ID: [id number] [facility]
[2019-01-24] MEDS: Sodium Chloride 0.9% 1,000 ML IV SCH ×2 (03:24→17:28)
[2019-01-24] MEDS: Melatonin 3 MG TAB PO PRN (03:24)
[2019-01-24 03:45] LABS: #Eosinphils 0.3 thou/uL (0.0-0.7); #Lymphocytes 1.3 thou/uL (1.20-3.40); #Monocytes 1.1 thou/uL (0.11-0.59); #Neutrophils 5.7 thou/uL (1.40-6.50); %Basophils 0.2 % (0.0-1.0); %Eosinophils 3.7 % (0.0-10.0); %Lymphocytes 15.4 % (21.0-51.0); %Monocytes 12.6 % (0.0-10.0); %Neutrophils 68.1 % (42.0-75.0); Hemoglobin 11.2 g/dL (12.0-16.0); Mean Corpuscular HGB CONC 33.3 g/dL (32.0-36.0); Mean Corpuscular Volume 99.1 fL (78.0-98.0); Mean Platelet Volume 6.5 fL (7.4-10.4); Platelet Count 350 thou/uL (130-400); RBC Distribution Width 12.3 % (11.5-14.5); White Blood Cell (WBC) Count 8.4 thou/uL (4.8-10.8)
[2019-01-24 03:59] LABS: Anion Gap 17 mmol/L (10-20); BUN (Urea Nitrogen) 13 mg/dL (9.8-20.1); Calc. Creatinine Clearance 58 mL/min (70-130); Calcium 9.1 mg/dL (7.8-10.44); Carbon Dioxide 21 mmol/L (23-31); Chloride 100 mmol/L (98-107); Estimated GFR-MDRD 80; Glucose 80 mg/dL (83-110); Potassium 3.8 mmol/L (3.5-5.1); Sodium 134 mmol/L (136-145)
[2019-01-24 04:04] LABS: Troponin I Less than 0.010 ng/mL (< 0.028)
--- NOTE | 2019-01-24 07:48 | CT ---
PRELIMINARY REPORT/[facility]/EMERGENCY AFTER HOURS PROCEDURE EXAM: CT Angiography Chest With Contrast EXAM DATE/TIME: 01/24/2019 3:12 AM CLINICAL HISTORY: 83 years old, female; Patient HX: Inpt. Eval for possible pe; PT C/O chest pain, SOB, and left leg pain. Elevated d-dimer TECHNIQUE: Imaging protocol: Computed tomographic angiography of the chest with intravenous contrast. 3D rendering: MIP reconstructed images were created and reviewed. COMPARISON: No relevant prior studies available. FINDINGS: Pulmonary arteries: Prominence of the central pulmonary arteries raises the possibility of pulmonary arterial hypertension. No evidence of PE. Aorta: Atherosclerotic aorta. No aneurysm or acute aortic syndrome. Lungs: Scarring and subsegmental atelectasis in the right lung. Lungs otherwise clear. Pleural space: Unremarkable. No pneumothorax. No pleural effusion. Heart: Unremarkable. No cardiomegaly. No pericardial effusion. Mediastinum: Esophagus is unremarkable. Kidneys and ureters: Left renal cyst. Lymph nodes: Unremarkable. No enlarged lymph nodes. Bones/joints: Unremarkable. No acute fracture. Soft tissues: Moderate hernia. Other findings: Right subacromial bursitis. IMPRESSION: Prominence of the central pulmonary arteries raises the possibility of pulmonary arterial hypertensio n. No evidence of PE. Thank you for allowing us to participate in the care of your patient. Dictated and Authenticated by: Jamie Zaman MD 01/24/2019 4:00 AM Central Time ([place] & [place]) FINAL REPORT EMERGENCY AFTER HOURS CT ANGIOGRAM THORAX WITH IV CONTRAST AND 3D RECONSTRUCTIONS: HISTORY: Chest pain and shortness of breath. Left leg pain. Elevated d-dimer. COMPARISON: CT abdomen on 03/07/2015. IMPRESSION: 1. No CT evidence of a pulmonary embolus. 2. Atherosclerotic vascular calcifications involving the coronary arteries and thoracic aorta. The th oracic aorta is normal in caliber without evidence of an aortic dissection. 3. Minimal scarring versus atelectasis in the right upper lobe, right middle lobe, and right lower lo be and to a lesser extent in the left lower lobe. No discrete pulmonary nodule, mass, or pleural effusion is identified. 4. Moderate size hiatal hernia. 5. Hypodense left renal lesions in the superior pole left kidney also seen on prior CT abdomen and li montserrat related to renal cysts. 6. Catheter coiled within the central spinal canal lower thoracic spine. Degenerative changes are see n in the spine. 7. Fluid within the subacromial bursa on the right with prominent right glenohumeral osteoarthropath y. 8. Calcifications within the subacromial space on the left suggesting intra-articular loose bodies. I n addition, there is fat density in the region of the subacromial bursa on the left incompletely imaged or evaluated. This may be secondary to lipomatosis of the synovium due to the severe left shou lder osteoarthritis, but further evaluation with MRI is recommended. This finding and recommendation was discussed with Mercy, the nurse on the hospital floor in charge of the patient's c are on 01/25/2019 at 0824 hours. Findings are agreement with the primary report by [facility]. Code QA
--- NOTE | 2019-01-24 08:07 | ULT ---
ULTRASOUND LEFT LOWER EXTREMITY VENOUS DOPPLER: Date: 01/23/19 HISTORY: Pain, redness, swelling, edema. COMPARISON: None. FINDINGS: Real-time Raya scale with color Doppler and spectral analysis of the left lower extremity venous syst em was performed. The common femoral, femoral, proximal portion of greater saphenous and deep femoral veins, as well as popliteal and posterior tibial veins were interrogation. Normal flow, augmentation, and compression. IMPRESSION: No deep venous thrombosis. POS: CET
[2019-01-24] MEDS ORDERED: Prevnar 13-Val Conj/PF 0.5 ML SYRINGE IM ONE (08:15)
[2019-01-24] MEDS: Amlodipine 5 MG TAB PO SCH (08:57)
[2019-01-24] MEDS: Enoxaparin Sodium 40 MG/0.4 ML SYRINGE SC SCH (08:57)
[2019-01-24] MEDS: Polyethylene Glycol 3350 17 GM Packet PO SCH (08:58)
[2019-01-24] MEDS ORDERED: Iopamidol 370 76% 100 ML VIAL ONE (10:45)
[2019-01-24] MEDS: Acetaminophen 500 MG TAB PO PRN ×2 (12:38→20:49)
--- NOTE | 2019-01-24 14:43 | PDOC.HOSPP ---
- Subjective Encounter Date: 01/24/19 Encounter Time: 14:41 Subjective: Feeling better in general. No SOB. No palpitations. Has some pain in her legs. Right one tends to cramp and she has to stand. - Objective Vital Signs & Weight: Vital Signs (12 hours) Temp Pulse Resp BP Pulse Ox 01/24/19 12:00 97.4 F L 89 17 128/57 L 96 01/24/19 08:57 83 01/24/19 08:00 98.6 F 83 17 175/74 H 96 01/24/19 04:20 98.8 F 86 20 157/70 H 95 Weight Weight 138 lb 11.2 oz I&O: 01/23/19 01/24/19 01/25/19 06:59 06:59 06:59 Intake Total 540 Output Total 150 Balance 390 Result Diagrams: 01/24/19 03:31 01/24/19 03:31 Hospitalist ROS - Medication Medications: Active Medications Generic Name Dose Route Start Last Admin Trade Name Freq PRN Reason Stop Dose Admin Acetaminophen 500 mg 01/24/19 01:57 01/24/19 12:38 Tylenol PO 500 mg Q6H PRN Administration Mild Pain (1-3) Amlodipine Besylate 5 mg 01/24/19 09:00 01/24/19 08:57 Norvasc PO 5 mg DAILY KHADRA Administration Cholecalciferol 2,000 units 01/24/19 09:00 01/24/19 08:57 Vitamin D3 PO 2,000 units DAILY KHADRA Administration Enoxaparin Sodium 40 mg 01/24/19 09:00 01/24/19 08:57 Lovenox SC 40 mg 0900 KHADRA Administration Sodium Chloride 1,000 mls @ 75 mls/hr 01/24/19 02:00 01/24/19 03:24 Normal Saline 0.9% IV 1,000 mls .[id number] KHADRA Administration Melatonin 3 mg 01/24/19 01:55 01/24/19 03:24 Melatonin PO 3 mg HS PRN Administration Insomnia Polyethylene Glycol 17 gm 01/24/19 09:00 01/24/19 08:58 Miralax PO 17 gm DAILY KHADRA Administration Sodium Chloride 10 ml 01/24/19 09:00 01/24/19 08:59 Flush - Normal Saline IVF Not Given Q12HR KHADRA Tramadol HCl 50 mg 01/24/19 01:54 01/24/19 11:16 Ultram PO 50 mg Q4H PRN Administration Moderate Pain (4-6) Triamcinolone Acetonide 0 gm 01/24/19 09:00 01/24/19 08:58 Kenalog 0.1% Ointment TOP 1 applic BID KHADRA Administration - Exam General Appearance: NAD, awake alert Neck: supple, symmetric, no JVD, no thyromegaly, no lymphadenopathy, no carotid bruit Heart: RRR, no murmur, no gallops, no rubs, normal peripheral pulses Respiratory: CTAB, no wheezes, no rales, no ronchi, normal chest expansion, no tachypnea, normal percussion Gastrointestinal: soft, non-tender, non-distended, normal bowel sounds, no palpable masses, no hepatomegaly, no splenomegaly, no bruit Extremities: no edema (Arthropathy of the toes and feet.) Extremeties - other findings: Erythema of the LLE. Skin tear of the left upper , outer calf with dressing Neurological: CN's grossly intact, normal sensation to touch, no weakness, no focal deficits, no new deficit Musculoskeletal: normal tone Psychiatric: normal affect, normal behavior, A&O x 3 Hosp A/P (1) Cellulitis of left leg Code(s): L03.116 - CELLULITIS OF LEFT LOWER LIMB Status: Acute (2) GERD (gastroesophageal reflux disease) Code(s): K21.9 - GASTRO-ESOPHAGEAL REFLUX DISEASE WITHOUT ESOPHAGITIS Status: Chronic (3) Hypertension Code(s): I10 - ESSENTIAL (PRIMARY) HYPERTENSION Status: Chronic
[2019-01-24] MEDS: cefTRIAXone\\ROCEPHIN 1 GM in Sodium Chloride 0.9% 100 ML IVPB SCH (17:26)
[2019-01-24] MEDS: Melatonin 3 MG TAB PO SCH (20:47)
[2019-01-24] MEDS: Potassium Chloride 8 MEQ TAB PO SCH (20:47)
[2019-01-24] MEDS ORDERED: Vancomycin HCl 1 GM in Premix Bag 1 BAG IVPB SCH (21:00)
[2019-01-24] MEDS ORDERED: POTASSIUM GLUCONATE 600 MG PO SCH (21:00)
[2019-01-25] MEDS: traMADol HCl 50 MG TAB PO PRN ×4 (00:28→22:28)
[2019-01-25] MEDS: Sodium Chloride 0.9% 1,000 ML IV SCH ×4 (04:49→22:31)
[2019-01-25] MEDS: Enoxaparin Sodium 40 MG/0.4 ML SYRINGE SC SCH (09:49)
[2019-01-25] MEDS: Amlodipine 5 MG TAB PO SCH (09:49)
[2019-01-25] MEDS: Polyethylene Glycol 3350 17 GM Packet PO SCH (09:53)
--- NOTE | 2019-01-25 16:15 | PDOC.HOSPP ---
- Subjective Subjective: Feeling a little better. Has not had any more chest pain. Tele leads are causing skin tears on her chest. - Objective Vital Signs & Weight: Vital Signs (12 hours) Temp Pulse Resp BP Pulse Ox 01/25/19 09:49 81 01/25/19 07:54 98.3 F 72 18 165/71 H 95 01/25/19 04:44 98.6 F 81 17 154/70 H 96 Weight Admit Weight 138 lb 11.2 oz Weight 143 lb 4.8 oz I&O: 01/24/19 01/25/19 01/26/19 06:59 06:59 06:59 Intake Total 540 2420 Output Total 150 700 Balance 390 1720 Result Diagrams: 01/24/19 03:31 01/24/19 03:31 Hospitalist ROS - Medication Medications: Active Medications Generic Name Dose Route Start Last Admin Trade Name Freq PRN Reason Stop Dose Admin Acetaminophen 500 mg 01/24/19 01:57 01/24/19 20:49 Tylenol PO 500 mg Q6H PRN Administration Mild Pain (1-3) Amlodipine Besylate 5 mg 01/24/19 09:00 01/25/19 09:49 Norvasc PO 5 mg DAILY KHADRA Administration Cholecalciferol 2,000 units 01/24/19 09:00 01/25/19 09:49 Vitamin D3 PO 2,000 units DAILY KHADRA Administration Enoxaparin Sodium 40 mg 01/24/19 09:00 01/25/19 09:49 Lovenox SC 40 mg 0900 KHADRA Administration Ceftriaxone Sodium 1 gm/ 100 mls @ 200 mls/hr 01/24/19 17:00 01/24/19 17:26 Sodium Chloride IVPB 100 mls Q24HR KHADRA Administration Vancomycin HCl 1 gm/ Device 200 mls @ 200 mls/hr 01/24/19 21:00 01/24/19 20: 53 IVPB 200 mls Q24HR@2100 KHADRA Administration Sodium Chloride 1,000 mls @ 75 mls/hr 01/24/19 02:00 01/25/19 08:08 Normal Saline 0.9% IV 1,000 mls .[id number] KHADRA Administration Melatonin 3 mg 01/24/19 01:55 01/24/19 03:24 Melatonin PO 3 mg HS PRN Administration Insomnia Melatonin 6 mg 01/24/19 21:00 01/24/19 20:47 Melatonin PO 6 mg HS KHADRA Administration Polyethylene Glycol 17 gm 01/24/19 09:00 01/25/19 09:53 Miralax PO Not Given DAILY KHADRA Potassium Chloride 8 meq 01/24/19 21:00 01/24/19 20:47 Slow-K 8 Meq PO 8 meq HS KHADRA Administration Sodium Chloride 10 ml 01/24/19 09:00 01/25/19 09:53 Flush - Normal Saline IVF Not Given Q12HR KHADRA Tramadol HCl 50 mg 01/24/19 01:54 01/25/19 11:29 Ultram PO 50 mg Q4H PRN Administration Moderate Pain (4-6) Triamcinolone Acetonide 0 gm 01/24/19 09:00 01/25/19 09:54 Kenalog 0.1% Ointment TOP 1 applic BID KHADRA Administration - Exam General Appearance: NAD, awake alert Heart: RRR, no murmur, no gallops, no rubs, normal peripheral pulses Respiratory: CTAB, no wheezes, no rales, no ronchi, normal chest expansion, no tachypnea, normal percussion Gastrointestinal: soft, non-tender, non-distended, normal bowel sounds, no palpable masses, no hepatomegaly, no splenomegaly, no bruit Extremeties - other findings: LLE with less inflammation. Erythema darker, less intense, less warm. Skin - other findings: Extremely thin skin with tears on chest. Musculoskeletal: normal tone Musculoskeletal - other findings: Severe osteoarthropathy of the hands and feet. Psychiatric: normal affect, normal behavior, A&O x 3 Hosp A/P (1) Cellulitis of left leg Code(s): L03.116 - CELLULITIS OF LEFT LOWER LIMB Status: Acute (2) GERD (gastroesophageal reflux disease) Code(s): K21.9 - GASTRO-ESOPHAGEAL REFLUX DISEASE WITHOUT ESOPHAGITIS Status: Chronic (3) Hypertension Code(s): I10 - ESSENTIAL (PRIMARY) HYPERTENSION Status: Chronic (4) Chest pain Code(s): R07.9 - CHEST PAIN, UNSPECIFIED Status: Acute (5) Skin tear Code(s): [id number] - Status: Acute - Plan Cellulitis looks a little better. Will step down the Vanc to [place]. Cultures negative. Will get echo, but not sure that we need to stress her at this point. DC the tele. Leads are problematic and she has been stable and pain free.
[2019-01-25] MEDS: cefTRIAXone\\ROCEPHIN 1 GM in Sodium Chloride 0.9% 100 ML IVPB SCH (16:54)
[2019-01-25] MEDS: Potassium Chloride 8 MEQ TAB PO SCH (20:30)
[2019-01-25] MEDS: Acetaminophen 500 MG TAB PO PRN (20:30)
[2019-01-25] MEDS: Melatonin 3 MG TAB PO SCH (20:30)
[2019-01-25 23:23] LABS: Vancomycin, Trough 6.9 ug/mL
[2019-01-26] MEDS: Melatonin 3 MG TAB PO PRN (00:51)
[2019-01-26] MEDS: traMADol HCl 50 MG TAB PO PRN ×3 (05:38→23:50)
[2019-01-26 05:52] LABS: #Basophils 0.1 thou/uL (0.0-0.2); #Eosinphils 0.2 thou/uL (0.0-0.7); #Lymphocytes 1.1 thou/uL (1.20-3.40); #Monocytes 1.4 thou/uL (0.11-0.59); #Neutrophils 7.2 thou/uL (1.40-6.50); %Basophils 0.5 % (0.0-1.0); %Eosinophils 2.2 % (0.0-10.0); %Lymphocytes 10.5 % (21.0-51.0); %Monocytes 14.3 % (0.0-10.0); %Neutrophils 72.4 % (42.0-75.0); Hemoglobin 10.4 g/dL (12.0-16.0); Mean Corpuscular HGB CONC 32.9 g/dL (32.0-36.0); Mean Corpuscular Hemoglobin 32.6 pg (27.0-31.0); Mean Corpuscular Volume 99.3 fL (78.0-98.0); Mean Platelet Volume 7.1 fL (7.4-10.4); Platelet Count 327 thou/uL (130-400); RBC Distribution Width 12.3 % (11.5-14.5)
[2019-01-26 06:16] LABS: Anion Gap 11 mmol/L (10-20); BUN (Urea Nitrogen) 10 mg/dL (9.8-20.1); Calc. Creatinine Clearance 75 mL/min (70-130); Calcium 8.9 mg/dL (7.8-10.44); Carbon Dioxide 24 mmol/L (23-31); Chloride 103 mmol/L (98-107); Estimated GFR-MDRD Greater than 90; Glucose 95 mg/dL (83-110); Potassium 3.9 mmol/L (3.5-5.1); Sodium 134 mmol/L (136-145)
[2019-01-26] MEDS ORDERED: Amlodipine 5 MG TAB PO SCH (07:48)
[2019-01-26] MEDS: Polyethylene Glycol 3350 17 GM Packet PO SCH (08:16)
[2019-01-26] MEDS: Enoxaparin Sodium 40 MG/0.4 ML SYRINGE SC SCH (08:16)
[2019-01-26] MEDS: Amlodipine 10 MG TAB PO SCH (08:16)
--- NOTE | 2019-01-26 10:17 | PDOC.HOSPP ---
- Subjective Subjective: Feels well. Eating reasonably well. Doesn't like the food. Legs feel heavy. Has some OA pain in right hand. - Objective Vital Signs & Weight: Vital Signs (12 hours) Temp Pulse Resp BP BP Pulse Ox 01/26/19 08:16 79 129/71 01/26/19 08:00 98.6 F 79 20 129/71 94 L Weight Admit Weight 138 lb 11.2 oz Weight 143 lb 4.8 oz I&O: 01/25/19 01/26/19 01/27/19 06:59 06:59 06:59 Intake Total 2420 Output Total 700 Balance 1720 Result Diagrams: 01/26/19 04:56 01/26/19 04:56 Hospitalist ROS - Medication Medications: Active Medications Generic Name Dose Route Start Last Admin Trade Name Freq PRN Reason Stop Dose Admin Acetaminophen 650 mg 01/23/19 23:09 01/26/19 00:51 Tylenol [place] 650 mg Q4H PRN Administration Headache/Fever/Mild Pain (1-3) Acetaminophen 500 mg 01/24/19 01:57 01/25/19 20:30 Tylenol PO 500 mg Q6H PRN Administration Mild Pain (1-3) Amlodipine Besylate 10 mg 01/26/19 09:00 01/26/19 08:16 Norvasc PO 10 mg DAILY KHADRA Administration Cholecalciferol 2,000 units 01/24/19 09:00 01/26/19 08:15 Vitamin D3 PO 2,000 units DAILY KHADRA Administration Enoxaparin Sodium 40 mg 01/24/19 09:00 01/26/19 08:16 Lovenox SC 40 mg 899 KHADRA Administration Melatonin 3 mg 01/24/19 01:55 01/26/19 00:51 Melatonin PO 3 mg HS PRN Administration Insomnia Melatonin 6 mg 01/24/19 21:00 01/25/19 20:30 Melatonin PO 6 mg HS KHADRA Administration Polyethylene Glycol 17 gm 01/24/19 09:00 01/26/19 08:16 Miralax PO 17 gm DAILY KHADRA Administration Potassium Chloride 8 meq 01/24/19 21:00 01/25/19 20:30 Slow-K 8 Meq PO 8 meq HS KHADRA Administration Sodium Chloride 10 ml 01/24/19 09:00 01/26/19 08:17 Flush - Normal Saline IVF Not Given Q12HR KHADRA Tramadol HCl 50 mg 01/24/19 01:54 01/26/19 05:38 Ultram PO 50 mg Q4H PRN Administration Moderate Pain (4-6) Triamcinolone Acetonide 0 gm 01/24/19 09:00 01/25/19 22:37 Kenalog 0.1% Ointment TOP Not Given BID KHADRA - Exam General Appearance: NAD, awake alert Heart: RRR, no murmur, no gallops, no rubs, normal peripheral pulses Respiratory: CTAB, no wheezes, no rales, no ronchi, normal chest expansion, no tachypnea, normal percussion Gastrointestinal: soft, non-tender, non-distended, normal bowel sounds, no palpable masses, no hepatomegaly, no splenomegaly, no bruit Extremeties - other findings: OA changes, hands and feet. No acute inflam. Skin - other findings: Continued improvement of LLE. Skin tear covered. Psychiatric: normal affect, normal behavior, A&O x 3 Hosp A/P (1) Cellulitis of left leg Code(s): L03.116 - CELLULITIS OF LEFT LOWER LIMB Status: Acute (2) GERD (gastroesophageal reflux disease) Code(s): K21.9 - GASTRO-ESOPHAGEAL REFLUX DISEASE WITHOUT ESOPHAGITIS Status: Chronic (3) Hypertension Code(s): I10 - ESSENTIAL (PRIMARY) HYPERTENSION Status: Chronic (4) Chest pain Code(s): R07.9 - CHEST PAIN, UNSPECIFIED Status: Acute (5) Skin tear Code(s): [id number] - Status: Acute - Plan Cellulitis continues to look improved. large skin tear is likely the source. DC IV abx and start po keflex. PT to help the patient get up today. Anticipate discharge tomorrow. Discussed with CM. She has HH[facility] at the [facility] and we will want to resume that. She apparently had the CP eval'd previously. The thinking was that the pain was not interfering with her life in general and no further workup was planned. She is comfortable with leaving that alone.
[2019-01-26] MEDS: LUTEIN PO SCH ×2 (11:06→11:38)
[2019-01-26] MEDS: Acetaminophen 500 MG TAB PO PRN (11:11)
[2019-01-26] MEDS ORDERED: Cephalexin 250 MG/5 ML Oral Suspension PO SCH (13:00)
[2019-01-26] MEDS: Cephalexin 250 MG CAP PO SCH ×3 (13:39→20:49)
[2019-01-26 13:53] VITALS: BMI 24.5
[2019-01-26] MEDS ORDERED: Ondansetron PF 4 MG/2 ML Vial IVP PRN (17:09)
[2019-01-26] MEDS: Melatonin 3 MG TAB PO SCH (20:49)
[2019-01-26] MEDS: Potassium Chloride 8 MEQ TAB PO SCH (20:49)
[2019-01-27] MEDS: Cephalexin 250 MG CAP PO SCH ×4 (08:50→20:13)
[2019-01-27] MEDS: Amlodipine 10 MG TAB PO SCH (09:09)
[2019-01-27] MEDS: Enoxaparin Sodium 40 MG/0.4 ML SYRINGE SC SCH (09:10)
[2019-01-27] MEDS: Acetaminophen 500 MG TAB PO PRN ×2 (09:10→20:13)
[2019-01-27] MEDS: Polyethylene Glycol 3350 17 GM Packet PO SCH (09:11)
[2019-01-27] MEDS ORDERED: Bisacodyl 10 MG SUPP PR PRN (10:13)
--- NOTE | 2019-01-27 16:37 | PDOC.HOSPP ---
- Subjective Subjective: Doing well. Had some nausea and vomiting yesterday. Resolved. Doing fine now. Was on Rabeprazole at home and that was not on her med list here. Reviewed the PT recs with her. She is good with going to rehab. - Objective Vital Signs & Weight: Vital Signs (12 hours) Temp Pulse Resp BP BP Pulse Ox 01/27/19 09:09 84 148/77 H 01/27/19 08:00 98.3 F 87 18 114/65 92 L Weight Admit Weight 138 lb 11.2 oz Weight 143 lb 4.8 oz Result Diagrams: 01/26/19 04:56 01/26/19 04:56 Hospitalist ROS - Medication Medications: Active Medications Generic Name Dose Route Start Last Admin Trade Name Freq PRN Reason Stop Dose Admin Acetaminophen 650 mg 01/23/19 23:09 01/26/19 00:51 Tylenol [place] 650 mg Q4H PRN Administration Headache/Fever/Mild Pain (1-3) Acetaminophen 500 mg 01/24/19 01:57 01/27/19 09:10 Tylenol PO 500 mg Q6H PRN Administration Mild Pain (1-3) Amlodipine Besylate 10 mg 01/26/19 09:00 01/27/19 09:09 Norvasc PO 10 mg DAILY KHADRA Administration Cephalexin 250 mg 01/26/19 13:00 01/27/19 13:15 Keflex PO 250 mg QID KHADRA Administration Cholecalciferol 2,000 units 01/24/19 09:00 01/27/19 09:12 Vitamin D3 PO 2,000 units DAILY KHADRA Administration Enoxaparin Sodium 40 mg 01/24/19 09:00 01/27/19 09:10 Lovenox SC 40 mg 09 KHADRA Administration Melatonin 3 mg 01/24/19 01:55 01/26/19 00:51 Melatonin PO 3 mg HS PRN Administration Insomnia Melatonin 6 mg 01/24/19 21:00 01/26/19 20:49 Melatonin PO 6 mg HS KHADRA Administration Ondansetron HCl 4 mg 01/26/19 17:09 01/26/19 17:39 Zofran IVP 4 mg Q6H PRN Administration Nausea/Vomiting Polyethylene Glycol 17 gm 01/24/19 09:00 01/27/19 09:11 Miralax PO Not Given DAILY KHADRA Potassium Chloride 8 meq 01/24/19 21:00 01/26/19 20:49 Slow-K 8 Meq PO 8 meq HS KHADRA Administration Sodium Chloride 10 ml 01/24/19 09:00 01/27/19 09:11 Flush - Normal Saline IVF 10 ml Q12HR KHADRA Administration Tramadol HCl 50 mg 01/24/19 01:54 01/26/19 23:50 Ultram PO 50 mg Q4H PRN Administration Moderate Pain (4-6) Triamcinolone Acetonide 0 gm 01/24/19 09:00 01/27/19 09:12 Kenalog 0.1% Ointment TOP 1 applic BID KHADRA Administration - Exam General Appearance: NAD, awake alert Heart: RRR, no murmur, no gallops, no rubs, normal peripheral pulses Respiratory: CTAB, no wheezes, no rales, no ronchi, normal chest expansion, no tachypnea, normal percussion Gastrointestinal: soft, non-tender, non-distended, normal bowel sounds, no palpable masses, no hepatomegaly, no splenomegaly, no bruit Extremities - other findings: Erythema largely replaced with chronic discoloration. Musculoskeletal: generalized weakness Psychiatric: normal affect, normal behavior, A&O x 3 Hosp A/P (1) Cellulitis of left leg Code(s): L03.116 - CELLULITIS OF LEFT LOWER LIMB Status: Acute (2) GERD (gastroesophageal reflux disease) Code(s): K21.9 - GASTRO-ESOPHAGEAL REFLUX DISEASE WITHOUT ESOPHAGITIS Status: Chronic (3) Hypertension Code(s): I10 - ESSENTIAL (PRIMARY) HYPERTENSION Status: Chronic (4) Chest pain Code(s): R07.9 - CHEST PAIN, UNSPECIFIED Status: Acute (5) Skin tear Code(s): [id number] - Status: Acute - Plan Cellulitis continues to look improved. large skin tear is likely the source. DC IV abx and start po keflex. PT recommendations appreciated. DW with CM. Will start the process to get her to rehab. She apparently had the CP eval'd previously. The thinking was that the pain was not interfering with her life in general and no further workup was planned. She is comfortable with leaving that alone.
[2019-01-27] MEDS: traMADol HCl 50 MG TAB PO PRN (17:52)
[2019-01-27] MEDS: Potassium Chloride 8 MEQ TAB PO SCH (20:13)
[2019-01-27] MEDS: Melatonin 3 MG TAB PO SCH (20:13)
[2019-01-28] MEDS: Amlodipine 10 MG TAB PO SCH (08:21)
[2019-01-28] MEDS: Cephalexin 250 MG CAP PO SCH ×4 (08:22→21:54)
[2019-01-28] MEDS: Enoxaparin Sodium 40 MG/0.4 ML SYRINGE SC SCH (08:23)
[2019-01-28] MEDS: Polyethylene Glycol 3350 17 GM Packet PO SCH (08:28)
[2019-01-28] MEDS: Bisacodyl 5 MG TAB PO PRN (08:41)
[2019-01-28] MEDS: traMADol HCl 50 MG TAB PO PRN ×2 (11:34→18:51)
[2019-01-28] MEDS: Acetaminophen 500 MG TAB PO PRN ×2 (13:39→21:54)
[2019-01-28] MEDS ORDERED: Acetaminophen 325 MG TAB PO PRN (14:32)
--- NOTE | 2019-01-28 14:35 | PDOC.HOSPP ---
- Subjective Subjective: Doing ok. Says she generally aches. Wound care decided not to change the dressing on the left leg, but she has had some discomfort since they assessed it. Generalized arthralgias. - Objective Vital Signs & Weight: Vital Signs (12 hours) Temp Pulse Resp BP BP Pulse Ox 01/28/19 08:21 80 138/76 01/28/19 08:20 93 L 01/28/19 07:23 97.7 F 80 14 138/76 93 L Weight Admit Weight 138 lb 11.2 oz Weight 143 lb 4.8 oz I&O: 01/27/19 01/28/19 01/29/19 06:59 06:59 06:59 Intake Total 460 500 Balance 460 500 Result Diagrams: 01/26/19 04:56 01/26/19 04:56 Hospitalist ROS - Medication Medications: Active Medications Generic Name Dose Route Start Last Admin Trade Name Freq PRN Reason Stop Dose Admin Acetaminophen 650 mg 01/23/19 23:09 01/26/19 00:51 Tylenol IA 650 mg Q4H PRN Administration Headache/Fever/Mild Pain (1-3) Acetaminophen 500 mg 01/24/19 01:57 01/28/19 13:39 Tylenol PO 500 mg Q6H PRN Administration Mild Pain (1-3) Amlodipine Besylate 10 mg 01/26/19 09:00 01/28/19 08:21 Norvasc PO 10 mg DAILY KHADRA Administration Bisacodyl 5 mg 01/24/19 01:57 01/28/19 08:41 Dulcolax PO 5 mg DAILY PRN Administration Constipation Cephalexin 250 mg 01/26/19 13:00 01/28/19 13:39 Keflex PO 250 mg QID KHADRA Administration Cholecalciferol 2,000 units 01/24/19 09:00 01/28/19 08:40 Vitamin D3 PO 2,000 units DAILY KHADRA Administration Enoxaparin Sodium 40 mg 01/24/19 09:00 01/28/19 08:23 Lovenox SC 40 mg 0900 KHADRA Administration Melatonin 3 mg 01/24/19 01:55 01/26/19 00:51 Melatonin PO 3 mg HS PRN Administration Insomnia Melatonin 6 mg 01/24/19 21:00 01/27/19 20:13 Melatonin PO 6 mg HS KHADRA Administration Ondansetron HCl 4 mg 01/26/19 17:09 01/26/19 17:39 Zofran IVP 4 mg Q6H PRN Administration Nausea/Vomiting Pantoprazole Sodium 40 mg 01/28/19 09:00 01/28/19 08:23 Protonix PO 40 mg DAILY KHADRA Administration Polyethylene Glycol 17 gm 01/24/19 09:00 01/28/19 08:28 Miralax PO Not Given DAILY KHADRA Potassium Chloride 8 meq 01/24/19 21:00 01/27/19 20:13 Slow-K 8 Meq PO 8 meq HS KHADRA Administration Sodium Chloride 10 ml 01/24/19 09:00 01/28/19 08:41 Flush - Normal Saline IVF 10 ml Q12HR KHADRA Administration Tramadol HCl 50 mg 01/24/19 01:54 01/28/19 11:34 Ultram PO 50 mg Q4H PRN Administration Moderate Pain (4-6) Triamcinolone Acetonide 0 gm 01/24/19 09:00 01/28/19 08:42 Kenalog 0.1% Ointment TOP 1 applic BID KHADRA Administration - Exam General Appearance: NAD, awake alert Heart: RRR, no murmur, no gallops, no rubs, normal peripheral pulses Respiratory: CTAB, no wheezes, no rales, no ronchi, normal chest expansion, no tachypnea, normal percussion Gastrointestinal: soft, non-distended, normal bowel sounds, no palpable masses, no hepatomegaly, no splenomegaly, no bruit Gastrointestinal - other findings: Mild generalized discomfort with palpation. Extremities - other findings: Mild chronic edema. LLE with dressing over skin tear. Dark discoloration. Musculoskeletal: generalized weakness Psychiatric: normal affect, normal behavior, A&O x 3 Hosp A/P (1) Cellulitis of left leg Code(s): L03.116 - CELLULITIS OF LEFT LOWER LIMB Status: Acute (2) GERD (gastroesophageal reflux disease) Code(s): K21.9 - GASTRO-ESOPHAGEAL REFLUX DISEASE WITHOUT ESOPHAGITIS Status: Chronic (3) Hypertension Code(s): I10 - ESSENTIAL (PRIMARY) HYPERTENSION Status: Chronic (4) Chest pain Code(s): R07.9 - CHEST PAIN, UNSPECIFIED Status: Acute (5) Skin tear Code(s): GVP7551 - Status: Acute (6) Constipation Code(s): K59.00 - CONSTIPATION, UNSPECIFIED Status: Acute (7) Osteoarthritis Code(s): M19.90 - UNSPECIFIED OSTEOARTHRITIS, UNSPECIFIED SITE Status: Acute - Plan Cellulitis continues to look improved. Initially on vanc, now on po keflex. Large skin tear of kwesi-lateral left calf is likely the source. PT recommendations appreciated. IRF pending. She apparently had the CP eval'd previously. The thinking was that the pain was not interfering with her life in general and no further workup was planned. She is comfortable with leaving that alone. PRN's prescribed for constipation. Does not want miralax nor an enema. Tylenol ordered for generalized pain/OA.
[2019-01-28] MEDS: Potassium Chloride 8 MEQ TAB PO SCH (21:54)
[2019-01-28] MEDS: Melatonin 3 MG TAB PO SCH (21:55)
[2019-01-29] MEDS: traMADol HCl 50 MG TAB PO PRN ×2 (05:16→12:25)
[2019-01-29] MEDS: Amlodipine 10 MG TAB PO SCH (08:52)
[2019-01-29] MEDS: Cephalexin 250 MG CAP PO SCH ×3 (08:52→18:03)
[2019-01-29] MEDS: Bisacodyl 5 MG TAB PO PRN (08:52)
[2019-01-29] MEDS: Enoxaparin Sodium 40 MG/0.4 ML SYRINGE SC SCH (08:53)
[2019-01-29] MEDS: Polyethylene Glycol 3350 17 GM Packet PO SCH (09:48)
[2019-01-29] MEDS: Acetaminophen 500 MG TAB PO PRN (13:44)
--- NOTE | 2019-01-29 14:12 | PDOC.HOSPP ---
- Subjective Encounter Date: 01/29/19 Encounter Time: 14:05 Subjective: f/u for deconditioning, LE cellulitis on current Keflex receiving local WCT. No new complaints. Ambulated with PT today. - Objective Vital Signs & Weight: Vital Signs (12 hours) Temp Pulse Resp BP BP Pulse Ox 01/29/19 08:52 76 056/70 01/29/19 08:20 93 L 01/29/19 07:50 98.8 F 76 20 156/70 H 93 L Weight Admit Weight 138 lb 11.2 oz Weight 143 lb 4.8 oz I&O: 01/28/19 01/29/19 01/30/19 06:59 06:59 06:59 Intake Total 460 950 Balance 460 950 Result Diagrams: 01/26/19 04:56 01/26/19 04:56 Hospitalist ROS - Medication Medications: Active Medications Generic Name Dose Route Start Last Admin Trade Name Freq PRN Reason Stop Dose Admin Acetaminophen 650 mg 01/23/19 23:09 01/26/19 00:51 Tylenol SD 650 mg Q4H PRN Administration Headache/Fever/Mild Pain (1-3) Acetaminophen 500 mg 01/24/19 01:57 01/29/19 13:44 Tylenol PO 500 mg Q6H PRN Administration Mild Pain (1-3) Acetaminophen 650 mg 01/28/19 14:32 01/29/19 08:51 Tylenol PO 650 mg Q6H PRN Administration Headache/Fever or Pain Amlodipine Besylate 10 mg 01/26/19 09:00 01/29/19 08:52 Norvasc PO 10 mg DAILY KHADRA Administration Bisacodyl 5 mg 01/24/19 01:57 01/29/19 08:52 Dulcolax PO 5 mg DAILY PRN Administration Constipation Cephalexin 250 mg 01/26/19 13:00 01/29/19 12:26 Keflex PO 250 mg QID KHADRA Administration Cholecalciferol 2,000 units 01/24/19 09:00 01/29/19 08:53 Vitamin D3 PO 2,000 units DAILY KHADRA Administration Enoxaparin Sodium 40 mg 01/24/19 09:00 01/29/19 08:53 Lovenox SC 40 mg 0900 KHADRA Administration Melatonin 3 mg 01/24/19 01:55 01/26/19 00:51 Melatonin PO 3 mg HS PRN Administration Insomnia Melatonin 6 mg 01/24/19 21:00 01/28/19 21:55 Melatonin PO 6 mg HS KHADRA Administration Ondansetron HCl 4 mg 01/26/19 17:09 01/26/19 17:39 Zofran IVP 4 mg Q6H PRN Administration Nausea/Vomiting Pantoprazole Sodium 40 mg 01/28/19 09:00 01/29/19 08:52 Protonix PO 40 mg DAILY KHADRA Administration Polyethylene Glycol 17 gm 01/24/19 09:00 01/29/19 09:48 Miralax PO Not Given DAILY KHADRA Potassium Chloride 8 meq 01/24/19 21:00 01/28/19 21:54 Slow-K 8 Meq PO 8 meq HS KHADRA Administration Sodium Chloride 10 ml 01/24/19 09:00 01/29/19 12:27 Flush - Normal Saline IVF 10 ml Q12HR KHADRA Administration Tramadol HCl 50 mg 01/24/19 01:54 01/29/19 12:25 Ultram PO 50 mg Q4H PRN Administration Moderate Pain (4-6) Triamcinolone Acetonide 0 gm 01/24/19 09:00 01/29/19 08:54 Kenalog 0.1% Ointment TOP 1 applic BID KHADRA Administration - Exam General Appearance: NAD, awake alert Eye: PERRL, anicteric sclera ENT: normocephalic atraumatic, no oropharyngeal lesions Neck: supple, symmetric, no JVD, no thyromegaly, no lymphadenopathy Heart: RRR, no murmur, no gallops, no rubs, normal peripheral pulses Respiratory: CTAB, no wheezes, no rales, no ronchi Gastrointestinal: soft, non-tender, non-distended, normal bowel sounds Extremities: 1+ LE edema Skin: normal turgor Skin - other findings: discoloration and skin dressings to LE's Neurological: cranial nerve grossly intact, no new deficit Musculoskeletal: generalized weakness Psychiatric: A&O x 3 Hosp A/P (1) Cellulitis of left leg Code(s): L03.116 - CELLULITIS OF LEFT LOWER LIMB Status: Acute Plan: Continue Keflex, local WCT (2) Generalized weakness Code(s): R53.1 - WEAKNESS Status: Chronic Plan: PT/OT for mobilization, fall risk precautions (3) Cellulitis of right leg Code(s): L03.115 - CELLULITIS OF RIGHT LOWER LIMB Status: Acute Plan: See above (4) Leg wound, right Code(s): S81.801A - UNSPECIFIED OPEN WOUND, RIGHT LOWER LEG, INITIAL ENCOUNTER Status: Acute Plan: WCT for local care, Keflex QID (5) Hypertension Code(s): I10 - ESSENTIAL (PRIMARY) HYPERTENSION Status: Chronic Qualifiers: Hypertension type: essential hypertension Qualified Code(s): I10 - Essential (primary) hypertension Plan: Continue current BP regimen - Plan continue antibiotics, PT/OT, social research assistant, out of bed/ambulate Stable currently Continue Keflex 250mg QID WCT with local care CM for SNF/Rehab options Likely transfer in 48h
--- NOTE | 2019-01-29 15:56 | EKG ---
Test Reason : Blood Pressure : / mmHG Vent. Rate : 085 BPM Atrial Rate : 085 BPM P-R Int : 152 ms QRS Dur : 080 ms QT Int : 392 ms P-R-T Axes : 046 042 039 degrees QTc Int : 466 ms Normal sinus rhythm Confirmed by LARRY MAGDALENO ([id number]), acquisitions editor ELBERT CAMERON ([id number]) on 01/29/2019 3:56:12 PM Referred By: Confirmed By:LARRY MAGDALENO
[2019-01-29 19:24] VITALS: BP 163/69; TEMP 98.1
--- NOTE | 2019-01-30 00:40 | DIS ---
DATE OF ADMISSION: 01/24/2019 DATE OF DISCHARGE: 01/29/2019 DISCHARGE DIAGNOSES: 1. Left lower extremity cellulitis with nonhealing ulcer. 2. Hypertension, stable. 3. Generalized weakness. 4. Cellulitis of the right lower extremity. 5. Deconditioning. CONSULTATIONS: None. PERTINENT LABORATORY DATA AND X-RAY FINDINGS: Lactic acid level ranged between 0.8 to 2.2, BNP 92. CBC showed a white blood cell count ranged between 8.4 to 10.9, hemoglobin ranged between 10.4 to 11.9. Blood cultures x1 positive for coagulase-negative Staphylococcus skin contaminant, 01/23/2019. Portable chest x-ray dated 01/23/2019, showed no acute cardiopulmonary process. Left lower extremity venous Doppler study dated 01/23/2019 showed no evidence for DVT. CT angiogram of the chest dated 01/24/2019 showed no evidence for pulmonary embolus. Multiple chronic findings as noted in the full report. Please see full dictated report for details. HOSPITAL COURSE: The patient was initially admitted after concern for a left lower extremity cellulitis in addition to nonhealing left lower extremity ulcer. The patient received IV antibiotics and local wound care services. The patient received daily dressing changes due to the complex nature of the wound. The patient continued to receive IV antibiotics, transitioning to oral Keflex 250 mg q.i.d. The patient was also evaluated by the Physical and Occupational Therapy Services and deemed an appropriate candidate for ongoing skilled care due to the complex left lower extremity ulcer as well as need for Physical and Occupational Therapy and high fall risk. I have examined the patient at the time of discharge and discussed followup instructions. The patient verbalized understanding and agreement, ready for discharge on 01/29/2019. DISCHARGE MEDICATIONS: 1. Norvasc 5 mg p.o. daily. 2. Dulcolax 5 mg p.o. daily. 3. Vitamin D3 2000 units p.o. daily. 4. Lutein 2 mg 2 capsules p.o. daily. 5. Melatonin 5 mg p.o. at bedtime. 6. Potassium gluconate 600 mg p.o. at bedtime. 7. Rabeprazole 20 mg p.o. daily. 8. Triamcinolone 0.1% ointment apply topically b.i.d. 9. Bisacodyl 10 mg per rectum q.8 hours p.r.n. 10. Keflex 250 mg p.o. q.i.d. 11. Melatonin 3 mg p.o. at bedtime. 12. Protonix 40 mg p.o. daily. 13. MiraLAX 17 g p.o. daily. 14. Tramadol 50 mg p.o. q.6 hours p.r.n. pain. FOLLOWUP: The patient will follow up with Dr. Bhavin Camarena and to call his office for appointment time and date. CONDITION ON DISCHARGE: Fair. ACTIVITY: Ad shruthi, rolling walker with standby/contact guard assistance. DIET: Regular with [employer] supplements b.i.d. CODE STATUS: Full. DISPOSITION: Discharged to [facility], 01/29/2019. TIME SPENT: Total time preparing and coordinating discharge is 35 minutes. Job ID: [id number]
== END 2019-01-29 20:26 | DRG 603 ==
LOC: ERS 20:05 → 2NO 01-24 00:30 → T4-A 01-25 21:41
PROVIDERS: ADMIT Hospitalist; ATTEND Hospitalist
DX: L03.116 Cellulitis of left lower limb (principal); L97.929 Non-pressure chronic ulcer of unspecified part of left lower leg with unspecified severity; L03.115 Cellulitis of right lower limb; K59.09 Other constipation; I10 Essential (primary) hypertension; E78.00 Pure hypercholesterolemia, unspecified; R07.9 Chest pain, unspecified; D53.9 Nutritional anemia, unspecified; E78.5 Hyperlipidemia, unspecified; K21.9 Gastro-esophageal reflux disease without esophagitis; M19.041 Primary osteoarthritis, right hand; Z79.899 Other long term (current) drug therapy; Z87.891 Personal history of nicotine dependence; Z91.048 Other nonmedicinal substance allergy status
CPT/HCPCS: 36415; 71045; 71275; 80048; 80053; 80202; 83605; 83880; 84484; 85025; 85379; 87040; 87149; 90471; 90670; 93005; 93306; 96365; 96366; 96367; G0009; J0696; J1650; J2405; J3370; J3490; Q9967

== ENCOUNTER 2021-04-18 21:09 | Inpatient (IN) | payer MEDICARE, OTHER ==
[2021-04-18 22:05] LABS: #Eosinphils 0.2 thou/uL (0.0-0.7); #Lymphocytes 1.4 thou/uL (1.20-3.40); #Neutrophils 4.9 thou/uL (1.40-6.50); %Basophils 0.6 % (0.0-1.0); %Eosinophils 2.9 % (0.0-10.0); %Monocytes 12.9 % (0.0-10.0); %Neutrophils 64.6 % (42.0-75.0); Hemoglobin 13.8 g/dL (12.0-16.0); Mean Corpuscular HGB CONC 32.4 g/dL (32.0-36.0); Mean Corpuscular Hemoglobin 32.1 pg (27.0-31.0); Mean Corpuscular Volume 98.8 fL (78.0-98.0); Mean Platelet Volume 6.4 fL (7.4-10.4); Platelet Count 291 thou/uL (130-400); Red Blood Cell (RBC) Count 4.31 mill/uL (4.20-5.40); White Blood Cell (WBC) Count 7.5 thou/uL (4.8-10.8)
[2021-04-18 22:21] LABS: ALT (SGPT) 10 U/L (8-55); AST (SGOT) 15 U/L (5-34); Alkaline Phosphatase 83 U/L (40-110); Anion Gap 16 mmol/L (10-20); BUN (Urea Nitrogen) 27 mg/dL (9.8-20.1); Bilirubin, Total 0.3 mg/dL (0.2-1.2); Calc. Creatinine Clearance 0 mL/min (70-130); Calcium 9.4 mg/dL (7.8-10.44); Carbon Dioxide 22 mmol/L (23-31); Chloride 102 mmol/L (98-107); Globulin 3.8 g/dL (2.4-3.5); Glucose 103 mg/dL (83-110); Potassium 4.6 mmol/L (3.5-5.1); Protein, Total 7.8 g/dL (5.8-8.1); Sodium 135 mmol/L (136-145)
[2021-04-18] MEDS ORDERED: Aspirin 325 MG TAB ONE (22:29)
[2021-04-18 22:37] LABS: Bilirubin Negative (Negative); Blood, Urine Negative (Negative); Clarity Clear (Clear); Glucose, Urine (Dipstick) Normal (Negative); Ketone, Urine Trace mg/dL (Negative); Leukocyte Negative Leu/uL (Negative); Nitrite Negative (Negative); Protein, Urine (Dipstick) 10 mg/dL (Neg-Trace); Specific Gravity, Urine 1.028 (1.002-1.036); Urobilinogen Normal mg/dL (Less than 2); pH, Urine 5.5 (5.0-9.0)
[2021-04-18 22:43] LABS: CKMB 1.9 ng/mL (0-6.6)
[2021-04-18] MEDS ORDERED: Zolpidem Tartrate 5 MG TAB PO PRN (23:19)
[2021-04-18] MEDS ORDERED: Ondansetron PF 4 MG/2 ML Vial IVP PRN (23:19)
[2021-04-19 00:15] VITALS: BMI 23.1
[2021-04-19] MEDS: Sodium Chloride 0.9% 1,000 ML IV SCH ×2 (00:29→12:45)
[2021-04-19 01:51] LABS: Troponin I 0.122 ng/mL (< 0.028)
[2021-04-19 05:05] LABS: #Basophils 0.1 thou/uL (0.0-0.2); #Eosinphils 0.2 thou/uL (0.0-0.7); #Lymphocytes 1.5 thou/uL (1.20-3.40); #Monocytes 1.2 thou/uL (0.11-0.59); #Neutrophils 7.5 thou/uL (1.40-6.50); %Basophils 0.6 % (0.0-1.0); %Eosinophils 1.8 % (0.0-10.0); %Lymphocytes 14.4 % (21.0-51.0); %Monocytes 11.3 % (0.0-10.0); Hemoglobin 13.4 g/dL (12.0-16.0); Mean Platelet Volume 6.6 fL (7.4-10.4); Platelet Count 279 thou/uL (130-400); RBC Distribution Width 11.9 % (11.5-14.5); Red Blood Cell (RBC) Count 4.04 mill/uL (4.20-5.40); White Blood Cell (WBC) Count 10.5 thou/uL (4.8-10.8)
[2021-04-19 05:24] LABS: Anion Gap 14 mmol/L (10-20); BUN (Urea Nitrogen) 20 mg/dL (9.8-20.1); Calc. Creatinine Clearance 52 mL/min (70-130); Calcium 9.2 mg/dL (7.8-10.44); Carbon Dioxide 22 mmol/L (23-31); Chloride 104 mmol/L (98-107); Glucose 91 mg/dL (83-110); Potassium 4.3 mmol/L (3.5-5.1); Sodium 136 mmol/L (136-145)
[2021-04-19] MEDS ORDERED: Famotidine 20 MG TAB PO SCH (09:00)
[2021-04-19] MEDS: Enoxaparin Sodium 40 MG/0.4 ML SYRINGE SC SCH (09:48)
[2021-04-19 13:04] LABS: SARS-CoV-2 PCR by NAA Not Detected (NotDetected)
[2021-04-19] MEDS: Acetaminophen 325 MG TAB PO PRN (18:12)
[2021-04-19] MEDS: Atorvastatin Calcium 40 MG TAB PO SCH (20:33)
[2021-04-19] MEDS: Melatonin 3 MG TAB PO SCH (20:33)
[2021-04-19] MEDS ORDERED: hydrALAZINE 25 MG TAB PO PRN (21:00)
[2021-04-19] MEDS ORDERED: levETIRAcetam 500 MG TAB PO SCH (21:00)
[2021-04-20] MEDS: Acetaminophen 325 MG TAB PO PRN (02:54)
[2021-04-20] MEDS: Sodium Chloride 0.9% 1,000 ML IV SCH ×2 (05:08→18:32)
[2021-04-20 05:18] LABS: Cardiac Risk 1.9 (Less than 4.5)
[2021-04-20] MEDS ORDERED: GUAIFENESIN SF SOLN 200 MG/10 ML UDCUP PO PRN (07:33)
[2021-04-20] MEDS ORDERED: Bisacodyl 10 MG SUPP PR PRN (07:33)
[2021-04-20] MEDS ORDERED: hydrALAZINE 20 MG/ML VIAL SLOW IVP PRN (07:33)
[2021-04-20] MEDS ORDERED: Calcium Carbonate 500 MG ChewTAB PO PRN (07:33)
[2021-04-20] MEDS: Aspirin Chewable 81 MG TAB PO SCH (09:44)
[2021-04-20] MEDS: Polyethylene Glycol 3350 17 GM Packet PO SCH (09:45)
[2021-04-20] MEDS: Cyanocobalamin (Vitamin B-12) 1,000 MCG TAB PO SCH (09:45)
[2021-04-20] MEDS: Docusate 100 MG CAP PO SCH ×2 (09:45→20:40)
[2021-04-20] MEDS: Multivitamin W/ Minerals 1 TAB PO SCH (09:45)
[2021-04-20] MEDS: Folic Acid 1 MG TAB PO SCH (09:45)
[2021-04-20] MEDS: Enoxaparin Sodium 40 MG/0.4 ML SYRINGE SC SCH (09:45)
[2021-04-20] MEDS: HYDROcodone/Acetaminophen 5/325 mg Tablet PO PRN ×2 (17:48→20:39)
[2021-04-20] MEDS: Atorvastatin Calcium 40 MG TAB PO SCH (20:38)
[2021-04-20] MEDS: levETIRAcetam 500 MG TAB PO SCH (20:39)
[2021-04-20] MEDS: Melatonin 3 MG TAB PO SCH (20:39)
[2021-04-21 05:09] LABS: Hemoglobin 12.9 g/dL (12.0-16.0); Mean Corpuscular HGB CONC 31.8 g/dL (32.0-36.0); Mean Corpuscular Hemoglobin 31.8 pg (27.0-31.0); Mean Corpuscular Volume 99.9 fL (78.0-98.0); Mean Platelet Volume 6.9 fL (7.4-10.4); Platelet Count 241 thou/uL (130-400); RBC Distribution Width 12.1 % (11.5-14.5); Red Blood Cell (RBC) Count 4.07 mill/uL (4.20-5.40); White Blood Cell (WBC) Count 8.5 thou/uL (4.8-10.8)
[2021-04-21 05:18] LABS: Anion Gap 13 mmol/L (10-20); BUN (Urea Nitrogen) 17 mg/dL (9.8-20.1); Calc. Creatinine Clearance 55 mL/min (70-130); Calcium 9.2 mg/dL (7.8-10.44); Carbon Dioxide 20 mmol/L (23-31); Chloride 109 mmol/L (98-107); Glucose 89 mg/dL (83-110); Magnesium 1.9 mg/dL (1.6-2.6); Phosphorus 3.1 mg/dL (2.3-4.7); Potassium 4.2 mmol/L (3.5-5.1); Sodium 138 mmol/L (136-145)
[2021-04-21 05:42] LABS: Band 1 % (5-11); Eosinophils 2 % (0-10); Lymphocytes 13 % (21-51); MDiff Complete? YES; Monocytes 15 % (0-10); Neutrophil 69 % (42-75)
[2021-04-21] MEDS ORDERED: Melatonin 3 MG TAB PO PRN (06:06)
[2021-04-21] MEDS: Multivitamin W/ Minerals 1 TAB PO SCH (09:13)
[2021-04-21] MEDS: Aspirin Chewable 81 MG TAB PO SCH (09:13)
[2021-04-21] MEDS: Polyethylene Glycol 3350 17 GM Packet PO SCH (09:13)
[2021-04-21] MEDS: Cyanocobalamin (Vitamin B-12) 1,000 MCG TAB PO SCH (09:13)
[2021-04-21] MEDS: Enoxaparin Sodium 40 MG/0.4 ML SYRINGE SC SCH (09:13)
[2021-04-21] MEDS: Cholecalciferol 1,000 UNITS (25 MCG) TAB PO SCH (09:13)
[2021-04-21] MEDS: Docusate 100 MG CAP PO SCH ×2 (09:14→20:24)
[2021-04-21] MEDS: Folic Acid 1 MG TAB PO SCH (09:14)
[2021-04-21] MEDS: levETIRAcetam 500 MG TAB PO SCH ×2 (09:14→20:24)
[2021-04-21] MEDS: HYDROcodone/Acetaminophen 5/325 mg Tablet PO PRN ×2 (09:20→20:24)
[2021-04-21] MEDS: Atorvastatin Calcium 40 MG TAB PO SCH (20:24)
[2021-04-22] MEDS: Docusate 100 MG CAP PO SCH ×2 (09:22→21:40)
[2021-04-22] MEDS: Aspirin Chewable 81 MG TAB PO SCH (09:22)
[2021-04-22] MEDS: Cholecalciferol 1,000 UNITS (25 MCG) TAB PO SCH (09:22)
[2021-04-22] MEDS: Polyethylene Glycol 3350 17 GM Packet PO SCH (09:23)
[2021-04-22] MEDS: Multivitamin W/ Minerals 1 TAB PO SCH (09:23)
[2021-04-22] MEDS: HYDROcodone/Acetaminophen 5/325 mg Tablet PO PRN (09:23)
[2021-04-22] MEDS: Enoxaparin Sodium 40 MG/0.4 ML SYRINGE SC SCH (09:23)
[2021-04-22] MEDS: levETIRAcetam 500 MG TAB PO SCH ×2 (09:23→21:40)
[2021-04-22] MEDS: Folic Acid 1 MG TAB PO SCH (09:23)
[2021-04-22] MEDS: Cyanocobalamin (Vitamin B-12) 1,000 MCG TAB PO SCH (09:27)
[2021-04-22] MEDS ORDERED: Amlodipine 5 MG TAB PO SCH (14:45)
[2021-04-22] MEDS: Atorvastatin Calcium 40 MG TAB PO SCH (21:40)
[2021-04-23] MEDS ORDERED: Amlodipine 5 MG TAB PO SCH (09:00)
[2021-04-23] MEDS: Enoxaparin Sodium 40 MG/0.4 ML SYRINGE SC SCH (09:52)
[2021-04-23] MEDS: Docusate 100 MG CAP PO SCH (09:52)
[2021-04-23] MEDS: Aspirin Chewable 81 MG TAB PO SCH (09:52)
[2021-04-23] MEDS: Cyanocobalamin (Vitamin B-12) 1,000 MCG TAB PO SCH (09:52)
[2021-04-23] MEDS: Cholecalciferol 1,000 UNITS (25 MCG) TAB PO SCH (09:52)
[2021-04-23] MEDS: Folic Acid 1 MG TAB PO SCH (09:52)
[2021-04-23] MEDS: levETIRAcetam 500 MG TAB PO SCH (09:53)
[2021-04-23] MEDS: Multivitamin W/ Minerals 1 TAB PO SCH (09:53)
[2021-04-23] MEDS: Polyethylene Glycol 3350 17 GM Packet PO SCH (09:53)
[2021-04-23 11:38] VITALS: TEMP 97.8
[2021-04-23 15:50] VITALS: BP 145/60
== END 2021-04-23 18:33 | DRG 312 ==
LOC: ERS 21:09 → 2NO 23:07
PROVIDERS: ADMIT Internal Medicine; ATTEND Internal Medicine
DX: I95.1 Orthostatic hypotension (principal); Z66 Do not resuscitate; Z20.822 Contact with and (suspected) exposure to COVID-19; G62.9 Polyneuropathy, unspecified; K59.09 Other constipation; I10 Essential (primary) hypertension; E78.00 Pure hypercholesterolemia, unspecified; I67.1 Cerebral aneurysm, nonruptured; K21.9 Gastro-esophageal reflux disease without esophagitis; M19.90 Unspecified osteoarthritis, unspecified site; F03.90 Unspecified dementia, unspecified severity, without behavioral disturbance, psychotic disturbance, mood disturbance, and anxiety; I65.21 Occlusion and stenosis of right carotid artery; Z87.891 Personal history of nicotine dependence; Z79.899 Other long term (current) drug therapy
CPT/HCPCS: 36415; 51701; 70450; 70496; 70498; 80048; 80053; 80061; 81003; 82553; 83735; 84100; 84484; 85025; 87086; 93005; 93306; J1650; J7050; U0003; U0005

== ENCOUNTER 2021-05-06 21:47 | Inpatient (IN) | payer MEDICARE, OTHER ==
[2021-05-06] MEDS ORDERED: Ondansetron PF 4 MG/2 ML Vial ONE (22:18)
[2021-05-06 22:26] LABS: #Basophils 0.1 thou/uL (0.0-0.2); #Eosinphils 0.3 thou/uL (0.0-0.7); #Lymphocytes 2.1 thou/uL (1.20-3.40); #Neutrophils 7.6 thou/uL (1.40-6.50); %Basophils 0.5 % (0.0-1.0); %Eosinophils 2.5 % (0.0-10.0); %Lymphocytes 18.7 % (21.0-51.0); %Monocytes 9.5 % (0.0-10.0); %Neutrophils 68.8 % (42.0-75.0); Hemoglobin 11.7 g/dL (12.0-16.0); Mean Corpuscular Hemoglobin 31.2 pg (27.0-31.0); Mean Platelet Volume 7.7 fL (7.4-10.4); Platelet Count 376 thou/uL (130-400); RBC Distribution Width 12.2 % (11.5-14.5); Red Blood Cell (RBC) Count 3.73 mill/uL (4.20-5.40)
[2021-05-06 22:40] LABS: INR-International Normal Ratio 1.1; PTT 29.9 sec (22.9-36.1); Prothrombin Time 14.1 sec (12.0-14.7)
[2021-05-06 22:45] LABS: ALT (SGPT) 11 U/L (8-55); AST (SGOT) 13 U/L (5-34); Albumin 3.1 g/dL (3.4-4.8); Alkaline Phosphatase 71 U/L (40-110); Anion Gap 17 mmol/L (10-20); BUN (Urea Nitrogen) 27 mg/dL (9.8-20.1); Bilirubin, Total 0.4 mg/dL (0.2-1.2); Calc. Creatinine Clearance 0 mL/min (70-130); Calcium 8.5 mg/dL (7.8-10.44); Carbon Dioxide 19 mmol/L (23-31); Chloride 111 mmol/L (98-107); Globulin 2.8 g/dL (2.4-3.5); Glucose 188 mg/dL (83-110); Potassium 4.9 mmol/L (3.5-5.1); Protein, Total 5.9 g/dL (5.8-8.1); Sodium 142 mmol/L (136-145)
[2021-05-07 01:21] LABS: Lactic Acid 2.1 mmol/L (0.5-2.2)
[2021-05-07] MEDS ORDERED: Ondansetron PF 4 MG/2 ML Vial IVP PRN (01:28)
[2021-05-07] MEDS ORDERED: Ondansetron ODT 4 MG TAB PO PRN (01:28)
[2021-05-07] MEDS ORDERED: Acetaminophen 650 MG Suppository PR PRN (01:28)
[2021-05-07 02:27] VITALS: BMI 20.9
[2021-05-07] MEDS: Sodium Chloride 0.9% 1,000 ML IV SCH ×3 (03:05→14:46)
[2021-05-07 05:32] LABS: #Basophils 0.1 thou/uL (0.0-0.2); #Eosinphils 0.1 thou/uL (0.0-0.7); #Lymphocytes 1.4 thou/uL (1.20-3.40); #Monocytes 0.8 thou/uL (0.11-0.59); #Neutrophils 9.2 thou/uL (1.40-6.50); %Basophils 0.6 % (0.0-1.0); %Eosinophils 0.7 % (0.0-10.0); %Lymphocytes 12.3 % (21.0-51.0); %Monocytes 7.1 % (0.0-10.0); %Neutrophils 79.3 % (42.0-75.0); Mean Corpuscular HGB CONC 32.3 g/dL (32.0-36.0); Mean Corpuscular Hemoglobin 33.6 pg (27.0-31.0); Mean Platelet Volume 7.5 fL (7.4-10.4); Platelet Count 299 thou/uL (130-400); RBC Distribution Width 12.2 % (11.5-14.5); Red Blood Cell (RBC) Count 2.97 mill/uL (4.20-5.40); White Blood Cell (WBC) Count 11.6 thou/uL (4.8-10.8)
[2021-05-07 05:43] LABS: Anion Gap 10 mmol/L (10-20); BUN (Urea Nitrogen) 23 mg/dL (9.8-20.1); Calc. Creatinine Clearance 53 mL/min (70-130); Calcium 8.2 mg/dL (7.8-10.44); Carbon Dioxide 20 mmol/L (23-31); Chloride 117 mmol/L (98-107); Glucose 114 mg/dL (83-110); Potassium 4.4 mmol/L (3.5-5.1); Sodium 143 mmol/L (136-145)
[2021-05-07] MEDS ORDERED: FLU VACC QS2021-22(65YR UP)/PF 240 MCG/0.7 ML SYRINGE IM ONE (09:00)
[2021-05-07] MEDS: Pantoprazole 40 MG VIAL IVP SCH (09:08)
[2021-05-07] MEDS: Acetaminophen 325 MG TAB PO PRN (16:04)
[2021-05-07] MEDS ORDERED: GoLYTELY 4,000 ml Bottle PO SCH (17:00)
[2021-05-07] MEDS ORDERED: Melatonin 3 MG TAB PO SCH (20:07)
[2021-05-08 00:59] LABS: SARS-CoV-2 NAA Rapid Test DETECTED (NotDetected)
[2021-05-08] MEDS: Acetaminophen 325 MG TAB PO PRN ×4 (02:07→14:02)
[2021-05-08] MEDS: Pantoprazole 40 MG VIAL IVP SCH (08:02)
[2021-05-08] MEDS: Sodium Chloride 0.9% 1,000 ML IV SCH (12:14)
[2021-05-08 16:41] VITALS: BP 145/67; TEMP 98.3
[2021-05-09] MEDS ORDERED: GoLYTELY 4,000 ml Bottle PO SCH (13:45)
== END 2021-05-08 17:25 | disposition home or self-care (01) | DRG 377 ==
LOC: ERS 21:47 → 2NO 23:59 → 2SW 05-08 02:04
PROVIDERS: ADMIT Student in an Organized Health Care Education/Training Program; ATTEND Internal Medicine
DX: K92.2 Gastrointestinal hemorrhage, unspecified (principal); U07.1 COVID-19; Z66 Do not resuscitate; E78.00 Pure hypercholesterolemia, unspecified; D53.9 Nutritional anemia, unspecified; G40.909 Epilepsy, unspecified, not intractable, without status epilepticus; F03.90 Unspecified dementia, unspecified severity, without behavioral disturbance, psychotic disturbance, mood disturbance, and anxiety; I10 Essential (primary) hypertension; E78.5 Hyperlipidemia, unspecified; K59.09 Other constipation; G62.9 Polyneuropathy, unspecified; M19.90 Unspecified osteoarthritis, unspecified site; Z91.048 Other nonmedicinal substance allergy status; Z79.82 Long term (current) use of aspirin; Z79.899 Other long term (current) drug therapy
CPT/HCPCS: 36415; 80048; 82607; 82746; 83605; 83880; 84484; 85610; 85730; 86850; 86900; 86901; C9113; J2405; J7050; U0002

== ENCOUNTER 2021-05-09 02:35 | Inpatient (IN) | payer MEDICARE, OTHER ==
[2021-05-09 03:21] LABS: #Basophils 0.1 thou/uL (0.0-0.2); #Eosinphils 0.2 thou/uL (0.0-0.7); #Lymphocytes 1.6 thou/uL (1.20-3.40); #Monocytes 0.9 thou/uL (0.11-0.59); #Neutrophils 7.3 thou/uL (1.40-6.50); %Basophils 0.9 % (0.0-1.0); %Eosinophils 2.1 % (0.0-10.0); %Lymphocytes 15.7 % (21.0-51.0); %Monocytes 8.7 % (0.0-10.0); %Neutrophils 72.7 % (42.0-75.0); Hemoglobin 7.7 g/dL (12.0-16.0); Mean Corpuscular HGB CONC 34.5 g/dL (32.0-36.0); Mean Corpuscular Hemoglobin 34.9 pg (27.0-31.0); Mean Platelet Volume 6.8 fL (7.4-10.4); Platelet Count 308 thou/uL (130-400); RBC Distribution Width 12.1 % (11.5-14.5); Red Blood Cell (RBC) Count 2.22 mill/uL (4.20-5.40); White Blood Cell (WBC) Count 10.1 thou/uL (4.8-10.8)
[2021-05-09 03:36] LABS: ALT (SGPT) 10 U/L (8-55); AST (SGOT) 14 U/L (5-34); Albumin 2.7 g/dL (3.4-4.8); Alkaline Phosphatase 63 U/L (40-110); Anion Gap 13 mmol/L (10-20); BUN (Urea Nitrogen) 15 mg/dL (9.8-20.1); Bilirubin, Total 0.3 mg/dL (0.2-1.2); Calc. Creatinine Clearance 0 mL/min (70-130); Calcium 7.9 mg/dL (7.8-10.44); Carbon Dioxide 22 mmol/L (23-31); Chloride 111 mmol/L (98-107); Globulin 2.3 g/dL (2.4-3.5); Glucose 90 mg/dL (83-110); Potassium 3.7 mmol/L (3.5-5.1); Sodium 142 mmol/L (136-145)
[2021-05-09] MEDS ORDERED: Acetaminophen 650 MG Suppository PR PRN (07:30)
[2021-05-09] MEDS ORDERED: Sodium Chloride 0.9% 1,000 ML IV SCH (07:30)
[2021-05-09] MEDS ORDERED: GoLYTELY 4,000 ml Bottle PO SCH (08:00)
[2021-05-09] MEDS: Pantoprazole 40 MG VIAL IVP SCH ×2 (09:33→19:39)
[2021-05-09 10:03] VITALS: BMI 20.4
[2021-05-09] MEDS ORDERED: levETIRAcetam in NS 500 MG in Premix Bag 1 BAG IVPB SCH (14:00)
[2021-05-09] MEDS ORDERED: Fentanyl 100 MCG/2 ML VIAL SLOW IVP PRN (14:29)
[2021-05-09 14:56] LABS: Hemoglobin 8.5 g/dL (12.0-16.0)
[2021-05-09] MEDS ORDERED: Fentanyl 100 MCG/2 ML VIAL SLOW IVP SCH (16:23)
[2021-05-09 19:38] LABS: Hemoglobin 7.8 g/dL (12.0-16.0)
[2021-05-09] MEDS: Fentanyl 100 MCG/2 ML VIAL SLOW IVP PRN (19:39)
[2021-05-09 20:01] LABS: Troponin I 0.055 ng/mL (< 0.028)
[2021-05-09] MEDS ORDERED: Nitroglycerin 0.4 MG TAB (25 Tab Bottle) SL PRN (20:46)
[2021-05-10 00:24] LABS: Hemoglobin 8.5 g/dL (12.0-16.0)
[2021-05-10 00:48] LABS: Troponin I 0.056 ng/mL (< 0.028)
[2021-05-10 05:03] LABS: Anion Gap 16 mmol/L (10-20); BUN (Urea Nitrogen) 11 mg/dL (9.8-20.1); Calc. Creatinine Clearance 62 mL/min (70-130); Calcium 7.5 mg/dL (7.8-10.44); Carbon Dioxide 16 mmol/L (23-31); Chloride 111 mmol/L (98-107); Glucose 63 mg/dL (83-110); Potassium 3.8 mmol/L (3.5-5.1); Sodium 139 mmol/L (136-145)
[2021-05-10 05:10] LABS: Troponin I 0.039 ng/mL (< 0.028)
[2021-05-10 05:12] LABS: Band 1 % (5-11); Eosinophils 2 % (0-10); Hemoglobin 8.9 g/dL (12.0-16.0); Hypochromia SLIGHT = 6-15 cells (100X) (0-5/hpf); Lymphocytes 8 % (21-51); MDiff Complete? YES; Mean Corpuscular HGB CONC 33.1 g/dL (32.0-36.0); Mean Corpuscular Hemoglobin 32.3 pg (27.0-31.0); Mean Corpuscular Volume 97.5 fL (78.0-98.0); Mean Platelet Volume 6.9 fL (7.4-10.4); Monocytes 14 % (0-10); Neutrophil 75 % (42-75); Platelet Count 233 thou/uL (130-400); Platelet Morphology Comment Appears Adequate; RBC Distribution Width 12.8 % (11.5-14.5); Red Blood Cell (RBC) Count 2.75 mill/uL (4.20-5.40); White Blood Cell (WBC) Count 13.9 thou/uL (4.8-10.8)
[2021-05-10] MEDS ORDERED: Dextrose 50% Abboject 50 ML SYRINGE IVP PRN (06:00)
[2021-05-10] MEDS ORDERED: Dextrose 5% in Water 1,000 ML IV PRN (06:00)
[2021-05-10] MEDS ORDERED: Fleet Enema 133 ML BOT PR SCH (07:00)
[2021-05-10] MEDS: Pantoprazole 40 MG VIAL IVP SCH ×2 (07:53→19:59)
[2021-05-10] MEDS ORDERED: levETIRAcetam in NS 500 MG in Premix Bag 1 BAG IVPB SCH (09:00)
[2021-05-10] MEDS ORDERED: Dexmedetomidine 200 MCG/2 ML VIAL ONE (09:05)
[2021-05-10] MEDS ORDERED: Ketamine 50 MG/ML (10ML VIAL) ONE (09:05)
[2021-05-10] MEDS ORDERED: Sterile Water 20 ML ONE (09:11)
[2021-05-10] MEDS ORDERED: ePHEDrine 50 MG/ML VIAL ONE (09:45)
[2021-05-10] MEDS ORDERED: metroNIDAZOLE 500 MG in Premix Bag 1 BAG IVPB SCH (12:00)
[2021-05-10] MEDS ORDERED: metroNIDAZOLE 500 MG TAB PO SCH (12:15)
[2021-05-10] MEDS ORDERED: Fleet Enema 133 ML BOT FS SCH (12:30)
[2021-05-10] MEDS: metroNIDAZOLE 500 MG TAB PO SCH ×2 (13:48→19:59)
[2021-05-10] MEDS: Melatonin 3 MG TAB PO SCH (19:59)
[2021-05-10] MEDS: Atorvastatin Calcium 40 MG TAB PO SCH (19:59)
[2021-05-11] MEDS: Fentanyl 100 MCG/2 ML VIAL SLOW IVP PRN ×3 (05:49→23:53)
[2021-05-11 07:09] LABS: #Eosinphils 0.2 thou/uL (0.0-0.7); #Lymphocytes 1.4 thou/uL (1.20-3.40); #Monocytes 1.4 thou/uL (0.11-0.59); #Neutrophils 11.3 thou/uL (1.40-6.50); %Basophils 0.2 % (0.0-1.0); %Eosinophils 1.3 % (0.0-10.0); %Lymphocytes 9.6 % (21.0-51.0); %Monocytes 9.6 % (0.0-10.0); %Neutrophils 79.3 % (42.0-75.0); Hemoglobin 7.9 g/dL (12.0-16.0); Mean Corpuscular HGB CONC 32.8 g/dL (32.0-36.0); Mean Corpuscular Hemoglobin 32.9 pg (27.0-31.0); Mean Platelet Volume 6.7 fL (7.4-10.4); Platelet Count 267 thou/uL (130-400); RBC Distribution Width 13.2 % (11.5-14.5); Red Blood Cell (RBC) Count 2.39 mill/uL (4.20-5.40); White Blood Cell (WBC) Count 14.3 thou/uL (4.8-10.8)
[2021-05-11] MEDS: Acetaminophen 325 MG TAB PO PRN ×3 (07:33→20:39)
[2021-05-11] MEDS: Aspirin Chewable 81 MG TAB PO SCH (07:33)
[2021-05-11] MEDS: Pantoprazole 40 MG VIAL IVP SCH ×2 (07:34→20:39)
[2021-05-11] MEDS: Amlodipine 5 MG TAB PO SCH (07:34)
[2021-05-11] MEDS: Polyethylene Glycol 3350 17 GM Packet PO SCH (07:34)
[2021-05-11] MEDS: Cholecalciferol 1,000 UNITS (25 MCG) TAB PO SCH (07:34)
[2021-05-11] MEDS: metroNIDAZOLE 500 MG TAB PO SCH ×3 (07:34→20:39)
[2021-05-11] MEDS: Bupropion 150 MG XL TAB PO SCH (07:34)
[2021-05-11] MEDS: levETIRAcetam 500 MG TAB PO SCH (07:34)
[2021-05-11] MEDS: Atorvastatin Calcium 40 MG TAB PO SCH (20:39)
[2021-05-11] MEDS: Melatonin 3 MG TAB PO SCH (20:39)
[2021-05-11] MEDS: Senokot S 8.6-50 MG TAB PO PRN (20:39)
[2021-05-12] MEDS: Acetaminophen 325 MG TAB PO PRN (04:18)
[2021-05-12 06:48] LABS: #Eosinphils 0.6 thou/uL (0.0-0.7); #Lymphocytes 0.8 thou/uL (1.20-3.40); #Monocytes 0.8 thou/uL (0.11-0.59); %Basophils 0.2 % (0.0-1.0); %Eosinophils 5.9 % (0.0-10.0); %Lymphocytes 7.9 % (21.0-51.0); %Monocytes 7.5 % (0.0-10.0); %Neutrophils 78.5 % (42.0-75.0); Hemoglobin 6.8 g/dL (12.0-16.0); Mean Corpuscular Hemoglobin 33.9 pg (27.0-31.0); Mean Corpuscular Volume 99.8 fL (78.0-98.0); Platelet Count 248 thou/uL (130-400); RBC Distribution Width 13.2 % (11.5-14.5); Red Blood Cell (RBC) Count 2.01 mill/uL (4.20-5.40); White Blood Cell (WBC) Count 10.2 thou/uL (4.8-10.8)
[2021-05-12] MEDS: metroNIDAZOLE 500 MG TAB PO SCH ×3 (08:40→21:04)
[2021-05-12] MEDS: Bupropion 150 MG XL TAB PO SCH (08:40)
[2021-05-12] MEDS: Polyethylene Glycol 3350 17 GM Packet PO SCH (08:40)
[2021-05-12] MEDS: Aspirin Chewable 81 MG TAB PO SCH (08:40)
[2021-05-12] MEDS: Cholecalciferol 1,000 UNITS (25 MCG) TAB PO SCH (08:40)
[2021-05-12] MEDS: Amlodipine 5 MG TAB PO SCH (08:40)
[2021-05-12] MEDS: Pantoprazole 40 MG VIAL IVP SCH ×2 (08:40→21:02)
[2021-05-12] MEDS: levETIRAcetam 500 MG TAB PO SCH (08:40)
[2021-05-12] MEDS: Sodium Chloride 0.9% 1,000 ML IV SCH (14:11)
[2021-05-12] MEDS: HYDROcodone/Acetaminophen 5/325 mg Tablet PO PRN (14:48)
[2021-05-12] MEDS: Gabapentin 300 MG CAP PO SCH ×2 (14:48→21:03)
[2021-05-12 15:34] LABS: Hemoglobin 8.9 g/dL (12.0-16.0)
[2021-05-12] MEDS: Senokot S 8.6-50 MG TAB PO PRN (21:03)
[2021-05-12] MEDS: Melatonin 3 MG TAB PO SCH (21:04)
[2021-05-12] MEDS: Atorvastatin Calcium 40 MG TAB PO SCH (21:04)
[2021-05-13] MEDS: Sodium Chloride 0.9% 1,000 ML IV SCH ×2 (03:00→15:55)
[2021-05-13] MEDS: Pantoprazole 40 MG VIAL IVP SCH ×2 (08:02→20:29)
[2021-05-13] MEDS: HYDROcodone/Acetaminophen 5/325 mg Tablet PO PRN (08:02)
[2021-05-13] MEDS: levETIRAcetam 500 MG TAB PO SCH (08:03)
[2021-05-13] MEDS: Bupropion 150 MG XL TAB PO SCH (08:03)
[2021-05-13] MEDS: Cholecalciferol 1,000 UNITS (25 MCG) TAB PO SCH (08:03)
[2021-05-13] MEDS: Gabapentin 300 MG CAP PO SCH ×3 (08:03→20:31)
[2021-05-13] MEDS: metroNIDAZOLE 500 MG TAB PO SCH ×3 (08:03→20:30)
[2021-05-13] MEDS: Aspirin Chewable 81 MG TAB PO SCH (08:03)
[2021-05-13] MEDS: Polyethylene Glycol 3350 17 GM Packet PO SCH (08:04)
[2021-05-13 08:05] LABS: #Eosinphils 0.4 thou/uL (0.0-0.7); #Neutrophils 7.7 thou/uL (1.40-6.50); %Basophils 0.4 % (0.0-1.0); %Eosinophils 3.8 % (0.0-10.0); %Lymphocytes 9.5 % (21.0-51.0); %Monocytes 9.9 % (0.0-10.0); %Neutrophils 76.4 % (42.0-75.0); Hemoglobin 8.4 g/dL (12.0-16.0); Mean Corpuscular HGB CONC 32.8 g/dL (32.0-36.0); Mean Corpuscular Hemoglobin 32.9 pg (27.0-31.0); Mean Platelet Volume 6.9 fL (7.4-10.4); Platelet Count 284 thou/uL (130-400); RBC Distribution Width 13.3 % (11.5-14.5); Red Blood Cell (RBC) Count 2.55 mill/uL (4.20-5.40); White Blood Cell (WBC) Count 10.1 thou/uL (4.8-10.8)
[2021-05-13 08:23] LABS: Anion Gap 11 mmol/L (10-20); BUN (Urea Nitrogen) 13 mg/dL (9.8-20.1); Calc. Creatinine Clearance 58 mL/min (70-130); Calcium 7.9 mg/dL (7.8-10.44); Carbon Dioxide 23 mmol/L (23-31); Chloride 112 mmol/L (98-107); Glucose 114 mg/dL (83-110); Potassium 3.3 mmol/L (3.5-5.1); Sodium 143 mmol/L (136-145)
[2021-05-13] MEDS ORDERED: Potassium Chloride 20 MEQ TAB PO SCH (09:45)
[2021-05-13 19:10] LABS: SARS-CoV-2 IgG Spike Ab Interp Reactive (NonReactive); SARS-CoV-2 IgG Spike Conc/Indx 7355.4 AU/mL (0.00-50.0)
[2021-05-13] MEDS: Atorvastatin Calcium 40 MG TAB PO SCH (20:30)
[2021-05-13] MEDS: Melatonin 3 MG TAB PO SCH (20:34)
[2021-05-13] MEDS: Acetaminophen 325 MG TAB PO PRN (20:34)
[2021-05-14] MEDS: HYDROcodone/Acetaminophen 5/325 mg Tablet PO PRN ×2 (03:34→13:08)
[2021-05-14] MEDS: Sodium Chloride 0.9% 1,000 ML IV SCH ×2 (05:10→15:24)
[2021-05-14 06:46] LABS: #Eosinphils 0.3 thou/uL (0.0-0.7); #Lymphocytes 0.9 thou/uL (1.20-3.40); #Monocytes 1.1 thou/uL (0.11-0.59); #Neutrophils 6.8 thou/uL (1.40-6.50); %Basophils 0.2 % (0.0-1.0); %Lymphocytes 9.8 % (21.0-51.0); %Monocytes 11.9 % (0.0-10.0); Hemoglobin 7.9 g/dL (12.0-16.0); Mean Corpuscular HGB CONC 33.2 g/dL (32.0-36.0); Mean Corpuscular Volume 99.2 fL (78.0-98.0); Mean Platelet Volume 6.8 fL (7.4-10.4); Platelet Count 272 thou/uL (130-400); RBC Distribution Width 13.5 % (11.5-14.5); Red Blood Cell (RBC) Count 2.38 mill/uL (4.20-5.40); White Blood Cell (WBC) Count 9.1 thou/uL (4.8-10.8)
[2021-05-14 07:09] LABS: Anion Gap 11 mmol/L (10-20); BUN (Urea Nitrogen) 12 mg/dL (9.8-20.1); Calc. Creatinine Clearance 61 mL/min (70-130); Calcium 7.9 mg/dL (7.8-10.44); Carbon Dioxide 22 mmol/L (23-31); Chloride 114 mmol/L (98-107); Glucose 112 mg/dL (83-110); Potassium 3.6 mmol/L (3.5-5.1); Sodium 143 mmol/L (136-145)
[2021-05-14] MEDS: Bupropion 150 MG XL TAB PO SCH (09:10)
[2021-05-14] MEDS: levETIRAcetam 500 MG TAB PO SCH (09:10)
[2021-05-14] MEDS: Pantoprazole 40 MG VIAL IVP SCH ×2 (09:10→19:59)
[2021-05-14] MEDS: Gabapentin 300 MG CAP PO SCH ×3 (09:10→19:59)
[2021-05-14] MEDS: Polyethylene Glycol 3350 17 GM Packet PO SCH (09:10)
[2021-05-14] MEDS: Aspirin Chewable 81 MG TAB PO SCH (09:10)
[2021-05-14] MEDS: Cholecalciferol 1,000 UNITS (25 MCG) TAB PO SCH (09:10)
[2021-05-14] MEDS: metroNIDAZOLE 500 MG TAB PO SCH ×3 (09:10→19:59)
[2021-05-14] MEDS: Atorvastatin Calcium 40 MG TAB PO SCH (19:59)
[2021-05-14] MEDS: Melatonin 3 MG TAB PO SCH (19:59)
[2021-05-15] MEDS: HYDROcodone/Acetaminophen 5/325 mg Tablet PO PRN (05:14)
[2021-05-15 07:20] LABS: #Basophils 0.1 thou/uL (0.0-0.2); #Eosinphils 0.2 thou/uL (0.0-0.7); #Lymphocytes 0.9 thou/uL (1.20-3.40); #Monocytes 1.2 thou/uL (0.11-0.59); #Neutrophils 10.7 thou/uL (1.40-6.50); %Basophils 0.4 % (0.0-1.0); %Eosinophils 1.6 % (0.0-10.0); %Lymphocytes 6.6 % (21.0-51.0); %Monocytes 9.2 % (0.0-10.0); %Neutrophils 82.3 % (42.0-75.0); Hemoglobin 7.6 g/dL (12.0-16.0); Mean Corpuscular HGB CONC 33.8 g/dL (32.0-36.0); Mean Corpuscular Hemoglobin 33.7 pg (27.0-31.0); Mean Corpuscular Volume 99.7 fL (78.0-98.0); Mean Platelet Volume 6.7 fL (7.4-10.4); Platelet Count 303 thou/uL (130-400); RBC Distribution Width 13.5 % (11.5-14.5); Red Blood Cell (RBC) Count 2.26 mill/uL (4.20-5.40)
[2021-05-15] MEDS: Bupropion 150 MG XL TAB PO SCH (08:21)
[2021-05-15] MEDS: Pantoprazole 40 MG VIAL IVP SCH ×2 (08:21→20:18)
[2021-05-15] MEDS: metroNIDAZOLE 500 MG TAB PO SCH ×3 (08:21→20:18)
[2021-05-15] MEDS: Polyethylene Glycol 3350 17 GM Packet PO SCH (08:21)
[2021-05-15] MEDS: levETIRAcetam 500 MG TAB PO SCH (08:21)
[2021-05-15] MEDS: Aspirin Chewable 81 MG TAB PO SCH (08:21)
[2021-05-15] MEDS: Gabapentin 300 MG CAP PO SCH ×3 (08:22→20:18)
[2021-05-15] MEDS: Sodium Chloride 0.9% 1,000 ML IV SCH ×2 (08:22→20:20)
[2021-05-15] MEDS: Cholecalciferol 1,000 UNITS (25 MCG) TAB PO SCH (08:22)
[2021-05-15] MEDS: Melatonin 3 MG TAB PO SCH (20:18)
[2021-05-15] MEDS: Atorvastatin Calcium 40 MG TAB PO SCH (20:18)
[2021-05-16] MEDS: Polyethylene Glycol 3350 17 GM Packet PO SCH (09:14)
[2021-05-16] MEDS: Gabapentin 300 MG CAP PO SCH ×3 (09:14→20:07)
[2021-05-16] MEDS: Pantoprazole 40 MG VIAL IVP SCH ×2 (09:14→20:08)
[2021-05-16] MEDS: Bupropion 150 MG XL TAB PO SCH (09:15)
[2021-05-16] MEDS: metroNIDAZOLE 500 MG TAB PO SCH ×3 (09:15→20:08)
[2021-05-16] MEDS: levETIRAcetam 500 MG TAB PO SCH (09:15)
[2021-05-16] MEDS: Sodium Chloride 0.9% 1,000 ML IV SCH (09:15)
[2021-05-16] MEDS: Cholecalciferol 1,000 UNITS (25 MCG) TAB PO SCH (09:15)
[2021-05-16] MEDS: Aspirin Chewable 81 MG TAB PO SCH (09:15)
[2021-05-16 13:37] LABS: #Lymphocytes 0.9 thou/uL (1.20-3.40); #Neutrophils 7.9 thou/uL (1.40-6.50); %Basophils 0.2 % (0.0-1.0); %Eosinophils 0.5 % (0.0-10.0); %Lymphocytes 9.1 % (21.0-51.0); %Monocytes 10.1 % (0.0-10.0); %Neutrophils 80.2 % (42.0-75.0); Hemoglobin 7.8 g/dL (12.0-16.0); Mean Corpuscular HGB CONC 33.6 g/dL (32.0-36.0); Mean Corpuscular Volume 98.3 fL (78.0-98.0); Mean Platelet Volume 6.3 fL (7.4-10.4); Platelet Count 350 thou/uL (130-400); RBC Distribution Width 13.2 % (11.5-14.5); Red Blood Cell (RBC) Count 2.37 mill/uL (4.20-5.40); White Blood Cell (WBC) Count 9.8 thou/uL (4.8-10.8)
[2021-05-16 13:56] LABS: Anion Gap 9 mmol/L (10-20); BUN (Urea Nitrogen) 11 mg/dL (9.8-20.1); Calc. Creatinine Clearance 63 mL/min (70-130); Calcium 8.3 mg/dL (7.8-10.44); Carbon Dioxide 25 mmol/L (23-31); Chloride 114 mmol/L (98-107); Glucose 112 mg/dL (83-110); Potassium 3.2 mmol/L (3.5-5.1); Sodium 145 mmol/L (136-145)
[2021-05-16] MEDS ORDERED: Potassium Chloride 20 MEQ TAB PO SCH (18:30)
[2021-05-16] MEDS: Acetaminophen 325 MG TAB PO PRN (18:48)
[2021-05-16] MEDS: Melatonin 3 MG TAB PO SCH (20:07)
[2021-05-16] MEDS: Atorvastatin Calcium 40 MG TAB PO SCH (20:07)
[2021-05-17] MEDS: Sodium Chloride 0.9% 1,000 ML IV SCH ×2 (01:10→13:46)
[2021-05-17] MEDS: Gabapentin 300 MG CAP PO SCH ×3 (08:06→19:45)
[2021-05-17] MEDS: Pantoprazole 40 MG VIAL IVP SCH ×2 (08:07→19:46)
[2021-05-17] MEDS: Cholecalciferol 1,000 UNITS (25 MCG) TAB PO SCH (08:07)
[2021-05-17] MEDS: Bupropion 150 MG XL TAB PO SCH (08:07)
[2021-05-17] MEDS: metroNIDAZOLE 500 MG TAB PO SCH ×2 (08:07→15:15)
[2021-05-17] MEDS: levETIRAcetam 500 MG TAB PO SCH (08:07)
[2021-05-17] MEDS: Aspirin Chewable 81 MG TAB PO SCH (08:07)
[2021-05-17] MEDS: Polyethylene Glycol 3350 17 GM Packet PO SCH (08:08)
[2021-05-17] MEDS: Melatonin 3 MG TAB PO SCH (19:45)
[2021-05-17] MEDS: Atorvastatin Calcium 40 MG TAB PO SCH (19:45)
[2021-05-18] MEDS: Sodium Chloride 0.9% 1,000 ML IV SCH ×2 (01:55→15:26)
[2021-05-18] MEDS: Pantoprazole 40 MG VIAL IVP SCH (07:54)
[2021-05-18] MEDS: Bupropion 150 MG XL TAB PO SCH (09:24)
[2021-05-18] MEDS: levETIRAcetam 500 MG TAB PO SCH (09:24)
[2021-05-18] MEDS: Aspirin Chewable 81 MG TAB PO SCH (09:24)
[2021-05-18] MEDS: Cholecalciferol 1,000 UNITS (25 MCG) TAB PO SCH (09:24)
[2021-05-18] MEDS: Gabapentin 300 MG CAP PO SCH ×2 (09:24→15:25)
[2021-05-18] MEDS: Polyethylene Glycol 3350 17 GM Packet PO SCH (09:25)
[2021-05-18] MEDS: HYDROcodone/Acetaminophen 5/325 mg Tablet PO PRN (09:58)
[2021-05-18 15:04] VITALS: BP 120/64; TEMP 97.9
== END 2021-05-18 16:02 | disposition home or self-care (01) | DRG 377 ==
LOC: SUATTDRO 02:35 → ERS 02:35 → T4-A 05:33
PROVIDERS: ADMIT Student in an Organized Health Care Education/Training Program; ATTEND Internal Medicine
PROC: 30233N1 Transfusion of Nonautologous Red Blood Cells into Peripheral Vein, Percutaneous Approach (ICD-10-PCS; 2021-05-09)
PROC: 8E0ZXY6 Isolation (ICD-10-PCS; 2021-05-09)
PROC: 0DJD8ZZ Inspection of Lower Intestinal Tract, Via Natural or Artificial Opening Endoscopic (ICD-10-PCS; principal; 2021-05-10)
DX: K57.33 Diverticulitis of large intestine without perforation or abscess with bleeding (principal); U07.1 COVID-19; G93.41 Metabolic encephalopathy; J12.82 Pneumonia due to coronavirus disease 2019; D62 Acute posthemorrhagic anemia; Z66 Do not resuscitate; E87.6 Hypokalemia; I10 Essential (primary) hypertension; E78.00 Pure hypercholesterolemia, unspecified; K59.09 Other constipation; F03.90 Unspecified dementia, unspecified severity, without behavioral disturbance, psychotic disturbance, mood disturbance, and anxiety; G62.9 Polyneuropathy, unspecified; K21.9 Gastro-esophageal reflux disease without esophagitis; G40.909 Epilepsy, unspecified, not intractable, without status epilepticus; E78.5 Hyperlipidemia, unspecified; D12.0 Benign neoplasm of cecum; Z98.890 Other specified postprocedural states; Z87.891 Personal history of nicotine dependence; Z88.5 Allergy status to narcotic agent; Z88.8 Allergy status to other drugs, medicaments and biological substances; Z79.899 Other long term (current) drug therapy; Z79.82 Long term (current) use of aspirin
CPT/HCPCS: 36415; 36416; 36430; 71045; 80048; 80053; 84484; 85025; 86769; 86850; 86900; 86901; 93005; 93010; 99285; C9113; J1953; J1956; J3010; J3490; J7050; P9016